=== PATIENT | female | born 1980 | race Caucasian/White ===

== ENCOUNTER 2024-01-05 12:03 | Outpatient (AMB) | payer OTHER, SELFPAY ==
[2024-01-05 12:08] VITALS: BP 142/84; PULSE 97; O2SAT 99; BMI 43.6
--- NOTE | 2024-01-05 12:08 | MHC.PC.OV ---
Vital Signs 01/05/24 12:08 Height 5 ft 3 in Weight 246 lb BMI 43.6 BP 142/84 H Blood Pressure Location Rt brachial Pulse 97 Pulse Source Pulse Oximeter Pulse Oximetry (%) 99 Oxygen Delivery Method Room Air Intake Visit Reasons: [employer]- Est care/[id number] Intake Note: Patient is here to follow up on CPAP, anxiety, and blood pressure, and weight management. Allergies No Known Allergies Allergy (Verified 01/05/24 12:12) Tobacco use date assessed: 01/05/24 Dental Screening Dental Screen Date: 01/05/24 Did you have a dental visit in the last 12 months?: Yes Did you have a dental problem in the last 6 months where you did not have access to dental care?: No Was dental information given to patient?: Patient has dentist HPI HPI Comments History of Present Illness Details This is a 43-year-old female with a past medical history of anxiety, hypertension, mild intermittent asthma, obesity and sleep apnea presenting to transfer care from my practice at [facility]. She had a complete physical exam at [facility] on 09/29/2023. She reported that her divorce was finalized. She is living in the same house with her ex in her 2 sons. It is civil. Anxiety is treated with Lexapro. She would like to stay on it for now. She was diagnosed with moderate sleep apnea. I referred her to sleep Medicine and ordered a CPAP, but when it needed to be sent to a different medical supply company [facility] would not do that. She does not drink alcohol. She sleeps on her side. I put a referral in at [facility] to see weight loss management because she wants to try a GLP 1, but they sent it to a bariatric surgeon who does not prescribed these medications. She is still interested in doing this. She continues to decline blood pressure for hypertension. She wants to try to lose weight and treat sleep apnea 1st. It has been difficult to focus on herself because she is very busy and was dealing with a divorce. She has a heart murmur on exam. This is new. Denies chest pain, shortness of breath, leg swelling or dizziness. She was treated for an asthma exacerbation this spring with a 5 day course of prednisone. She also used a nebulizer. Requests refills on albuterol supplies. ROS: Constitutional: No unexplained weight loss, fever, chills, fatigue or night sweats. Respiratory: No shortness of breath, cough or sputum production. Cardiovascular: No chest pain, chest pressure or chest discomfort. No palpitations or pedal edema. Neurologic: No headache, dizziness, syncope or weakness Endocrine: No cold or heat intolerance. No polyuria or polydipsia. Psychiatric: No depression.. No SI/HI. Physical exam: Constitutional: Alert, in no distress. Head: Normocephalic. Eyes: Pupils are equal, round and reactive to light. Extraocular muscles intact. Respiratory: Clear to auscultation. Cardiovascular: S1 S2 regular. I/ systolic murmur. Gastrointestinal: Abdomen soft, non-tender, non-distended. Normal bowel sounds. No palpable masses. Extremities: Warm and well perfused. No clubbing, cyanosis or edema. Psychiatric: Normal mood and affect [facility] Medical History (Updated 01/05/24 @ 13:46 by RADHA Gunter) Mild intermittent asthma in adult without complication Heart murmur Seasonal allergic rhinitis due to pollen Exercise-induced asthma Essential hypertension Anxiety Obesity with serious comorbidity QUINTON (obstructive sleep apnea) Sleep apnea Surgical History (Updated 01/05/24 @ 12:33 by RADHA Gunter) History of Family History (Updated 01/05/24 @ 12:26 by Myra Young [facility]) Mother Ovarian cancer Substance abuse in family Mental health disorder Maternal Grandmother Ovarian cancer Breast cancer Maternal Aunt Mental health disorder Social History Housing: House Patient Tobacco Use Status: Never used Tobacco e-Cigarette/Vaping Use: Never Used service: No Current occupational status: employed Current occupation: [employer] Cognitive needs: No Hearing needs: No Vision needs: Yes (patient wears glasses) Questionnaire PHQ-9 Over the last 2 weeks, how often have you been bothered by any of the following problems? 1. Little interest or pleasure in doing things: not at all 2. Feeling down, depressed, or hopeless: not at all 3. Trouble falling or staying asleep, or sleeping too much: not at all 4. Feeling tired or having little energy: not at all 5. Poor appetite or overeating: not at all 6. Feeling bad about yourself - or that you are a failure or have let yourself or your family down: not at all 7. Trouble concentrating on things, such as reading the newspaper or watching television: not at all 8. Moving or speaking so slowly that other people could have noticed. Or the opposite - being so fidgety or restless that you have been moving around a lot more than usual: not at all 9. Thoughts that you would be better off or of hurting yourself in some way: not at all Total score: 0 Depression Screening Interpretation: Negative Depression Screening Done: Yes Source: Developed by Drs. Hema Britton, No Noyola, Luis Borja and colleagues, with an educational jimy from [employer]. Thrive Questionnaire Date Thrive assessed: 01/05/24 I am a: Patient What is your living situation today?: I have a steady place to live Within the past 12 months, did the food you bought not last and you didn't have the money to get more?: Never true Within the past 12 months, did you worry whether your food would run out before you got money to buy more?: Never true Do you have trouble paying for medicines?: No Do you have trouble getting transportation to medical appointments?: No Do you have trouble paying your heating and electricity bill?: No Do you have trouble taking care of your child, family member or friend?: No Do you have trouble with day-to-day activities such as bathing, preparing meals, shopping, managing finances, etc.?: No Are you currently unemployed and looking for a job?: No Are you interested in more education?: No THRIVE Score: 0 NENA-7 AMB Questionnaire NENA-7 Date NENA - 7 assessed: 01/05/24 Feeling nervous, anxious, or on edge: 1 = Several days Not being able to stop or control worryin = Several days Worrying too much about different things: 1 = Several days Trouble relaxin = Not at all Being so restless that it is hard to sit still: 0 = Not at all Becoming easily annoyed or irritable: 0 = Not at all Feeling afraid as if something awful might happen: 0 = Not at all Total NENA-7 score (0-4 normal; 5-9 mild; 10-14 moderate; 15-21 severe): 3 Source: Developed by Drs. Hema LNo Salgado Kurt Kroenke and colleagues, with an educational jimy from [employer]. Physical exam (Primary Care) Vital Signs: Last Vital Signs Pulse 97 01/05/24 12:08 BP 142/84 H 01/05/24 12:08 Pulse Ox 99 01/05/24 12:08 Oxygen Delivery Method Room Air 01/05/24 12:08 BMI result Body Mass Index 43.6 Tobacco/Smoking Status: Tobacco use Status Tobacco use date assessed 01/05/24 01/05/24 12:30 Patient Tobacco Use Status Never used Tobacco 01/05/24 12:30 e-Cigarette/Vaping Use Never Used 01/05/24 12:30 PHQ-9: PHQ-9 Score PHQ-9: Total score 0 01/05/24 12:30 Depression Screening Interpretation: Negative Thrive Assessment: Date of Thrive Assessment Date Thrive assessed 01/05/24 01/05/24 12:30 Office Procedures EKG Details: EKG shows possible left atrial enlargement. Reviewed by Dr. Amaro. [id number], Complete Assessment and Plan Assessment & Plan (1) Heart murmur: Code(s): R01.1 - Cardiac murmur, unspecified (2) Obesity with serious comorbidity: Code(s): E66.9 - Obesity, unspecified Qualifiers: Obesity classification: adult class 3 (BMI >= 40) Body mass index: BMI 40.0-44.9 Obesity type: due to excess calories Qualified Code(s): E66.01 - Morbid (severe) obesity due to excess calories; Z68.41 - Body mass index [BMI] 40.0-44.9, adult (3) QUINTON (obstructive sleep apnea): Code(s): G47.33 - Obstructive sleep apnea (adult) (pediatric) (4) Anxiety: Code(s): F41.9 - Anxiety disorder, unspecified (5) Essential hypertension: Code(s): I10 - Essential (primary) hypertension (6) Mild intermittent asthma in adult without complication: Code(s): J45.20 - Mild intermittent asthma, uncomplicated Plan The patient's EKG shows no ischemic changes or arrhythmia. There is possible left atrial enlargement. Echocardiogram ordered for evaluation due to new heart murmur and history of hypertension and morbid obesity. Patient declines antihypertensive medication. She will reconsider if the echo shows evidence of hypertensive heart disease. She wants to try to lose weight. Refer to endocrinology because she wants to start a GLP 1, but [facility] will not cover it from primary care. Continue efforts at weight loss. Prior TSH normal.Recommend avoidance of caffeine and following a low-sodium diet. Continue Lexapro for anxiety which is well-controlled. Reordered CPAP. Referred to sleep Medicine for management of moderate sleep apnea. Avoid alcohol and sleeping supine. Refilled albuterol. Use reviewed. If she requires it More than once or twice per week she will contact the Office. Follow up in 4 months for hypertension. Orders: Orders AMB EKG-In Office Today R01.1 - Cardiac murmur, unspecified CA echo transthoracic complete Today R01.1 - Cardiac murmur, unspecified Referrals Sleep Medicine Referral G47.33 - Obstructive sleep apnea (adult) (pediatric) Endocrinology Referral E66.9 - Obesity, unspecified Medications: New albuterol sulfate 2.5 mg (3 mL) inhalation Q4H PRN 180 mL 0RF shortness of breath or wheezing escitalopram oxalate 20 mg PO DAILY 90 tabs 3RF albuterol sulfate 90 mcg/actuation 2 inhalations inhalation Q4H PRN 8.5 grams 0RF shortness of breath or wheezing CPAP (CPAP Machine/Device) As directed 1 ea 0RF Coding Level of Care Code Est Pt Level 4 (87335) Complex EM visit Add On G2211 Diagnoses Heart murmur R01.1 Class 3 severe obesity due to excess calories with serious comorbidity and body mass index (BMI) of 40.0 to 44.9 in adult E66.01; Z68.41 Obesity classification: adult class 3 (BMI >= 40) Body mass index: BMI 40.0-44.9 Obesity type: due to excess calories QUINTON (obstructive sleep apnea) G47.33 Anxiety F41.9 Essential hypertension I10 Mild intermittent asthma in adult without complication J45.20 CPT Codes EKG - CPT: 86210-[id number], Complete ([id number])
== END 2024-01-05 13:20 | disposition home or self-care (01) ==
PROVIDERS: PCP Physician Assistant Medical; Visit Provider Physician Assistant Medical
DX: R01.1 Cardiac murmur, unspecified (principal); E66.01 Morbid (severe) obesity due to excess calories; Z68.41 Body mass index [BMI] 40.0-44.9, adult; G47.33 Obstructive sleep apnea (adult) (pediatric); F41.9 Anxiety disorder, unspecified; I10 Essential (primary) hypertension; J45.20 Mild intermittent asthma, uncomplicated
CPT/HCPCS: 93000; 99214

== ENCOUNTER → 2024-01-12 08:59 | Outpatient (REF) | payer OTHER, SELFPAY ==
--- NOTE | 2024-01-12 09:05 | CA_ITS ---
Transthoracic Echocardiogram Patient (Last, First, Middle): Annemarie Wood, Gender: Female Date of : 1980 Age: 43 Procedure Date: 01/12/2024 Procedure Type: Transthoracic Echocardiogram Location: OP Height: 160.02 cm Weight: 108.86 kg BSA: 2.09 m2 Heart Rate: bpm BP: 140 / 84 mmHg [employer] Docent: BIRGIT Referring MD: Lisa GARCIA Symptoms: R01.1 - Cardiac murmur, unspecified Study Quality: Adequate ECG Rhythm: Sinus Conclusions: - The left ventricular systolic function is normal. The visually estimated ejection fraction is between 55-60%. - No obvious valvular pathology seen on this study. Findings Left Ventricle Normal left ventricular cavity size. There is normal left ventricular wall thickness. The left ventricular systolic function is normal. The visually estimated ejection fraction is between 55-60%. There is no evidence of regional wall motion abnormalities. Diastolic function is normal for age. Right Ventricle Normal right ventricular cavity size and systolic function. Atria Both atria are normal in size. Aortic Valve There is a normal trileaflet aortic valve. There is no aortic valve stenosis. There is no aortic valve regurgitation. Mitral Valve The mitral valve appears normal. There is no mitral valve regurgitation. There is no mitral valve stenosis. Pulmonic Valve The pulmonic valve is likely normal. Tricuspid Valve There is trace tricuspid valve regurgitation. There is no evidence of pulmonary hypertension. Great Vessels The asc aorta and aortic arch are normal in size. Venous The inferior vena cava is normal in size and collapses greater than 50% with inspiration. Pericardium/Pleural There is no evidence of pericardial effusion. Prior Study Comparison No prior study available for comparison. Recommendations, Care & Conclusions No obvious valvular pathology seen on this study. Measurements 2D Linear Measurements IVSd: 0.84 0.6-0.9/0.6-1.0 cm LVIDd: 4.74 3.9-5.3/4.2-5.9 cm LVIDd Index: 2.27 2.4-3.2/2.2-3.1 cm/m2 LVIDs: 3.15 2.0-3.6 cm LVPWd: 0.83 0.7-1.1 cm LA Diam: 3.50 2.7-3.8/3.0-4.0 cm LAIDs Index: 1.67 1.5-2.3 cm/m2 LV Mass: 162.77 67-162/88-224 g LV Mass Index: 77.88 43-95/49-115 g/m2 LVOT Diam: 2.00 3.0+(-)1.3 cm 2D Systolic Function EF 4C: 57.60 >55% EF 2C: 62.80 >55% EF BiP: 61.70 >55% Mitral Valve MV Pk E: 0.88 MV PK A: 0.94 MV Decel Time: 190.00 E/A: 0.90 E'Lateral: 11.70 E'Medial: 8.81 E/E' Med: 10.00 E/E' Lat: 7.50 PHT: 56.00 MVA PHT: 3.93 Decel [place]: 4.62 Aortic Valve AoV Pk Carlton: 1.67 AoV Mn Carl[place]: 1.13 AoV VTI: 0.35 AoV Pk Grad: 11.00 Aov Mn Grad: 6.00 LILLY Cont.VTI: 2.22 LVOT LVOT Pk [place]: 1.06 LVOT Mn [place]: 0.79 LVOT VTI: 0.25 LVOT Pk Grad: 4.00 LVOT Mn Grad: 3.00 LVOT Diam: 2.00 LVOT Area: 3.14 Diastolic Function MV Pk E: 0.88 MV Pk A: 0.94 E/A: 0.90 E'Medial: 8.81 E/E' Med: 10.00 E' Laterial: 11.70 E/E' Lat: 7.50 Right Ventricle TAPSE (mm): 26.40 TVS' Carl[place]: 14.80 Tricuspid Valve TR Pk [place]: 2.28 TR Pk Grad: 21.00 RA Press: 3.00 RVSP: 24.00 Great Vessels Aorta Sinus of Valsalva: 2.80 2.0-3.[address] [place]: 2.73 1.7-3.4 cm Ao Asc: 3.40 2.1-3.4 cm Ao Arch: 3.10 Updated in Other Vendor System with Status of Final Wilmer Concepcion MD electronically signed on 01/12/2024 10:47:06 AM with status of Final
== END ==
LOC: HO.CARD 08:59
PROVIDERS: PCP Physician Assistant Medical; Visit Provider Physician Assistant Medical
DX: R01.1 Cardiac murmur, unspecified (principal)
CPT/HCPCS: 93306

== ENCOUNTER → 2024-01-12 09:05 | Outpatient (BNV) | payer OTHER, SELFPAY | PROVIDERS: PCP Physician Assistant Medical; Visit Provider Internal Medicine | DX: R01.1 Cardiac murmur, unspecified (principal) | CPT/HCPCS: 93306 ==

== ENCOUNTER 2024-06-07 14:51 | Outpatient (AMB) | payer OTHER, SELFPAY ==
--- NOTE | 2024-06-07 14:53 | MHC.PC.OV ---
Vital Signs 06/07/24 14:56 Height 5 ft 3 in BMI Reason not done Patient refused/unable BP 146/80 H Blood Pressure Location Lt brachial Position Sitting Respiration 14 Pulse 76 Pulse Source Pulse Oximeter Pulse Oximetry (%) 99 Oxygen Delivery Method Room Air Intake Visit Reasons: F/U appointment rescheduled Intake Note: follow up Green Pipefitter Required: No Allergies No Known Allergies Allergy (Verified 06/07/24 14:54) Tobacco use date assessed: 01/05/24 Dental Screening Dental Screen Date: 06/07/24 Did you have a dental visit in the last 12 months?: Yes Did you have a dental problem in the last 6 months where you did not have access to dental care?: No Was dental information given to patient?: Patient has dentist HPI HPI Comments History of Present Illness Details This is a 44-year-old female with a past medical history of anxiety, hypertension, mild intermittent asthma, obesity and sleep apnea presenting for follow up. Patient is headed to [place] for the with her 2 children. She will visit a maternal figure there she's known for years. She had a complete physical exam at [facility] on 09/29/2023. Her divorce was finalized. She is living in the same house with her ex in her 2 sons. It is civil. Anxiety is treated with Lexapro. She was diagnosed with moderate sleep apnea. She saw sleep Medicine, and she is using a CPAP. I put a referral in at [facility] to see weight loss management because she wants to try a GLP 1, but they sent it to a bariatric surgeon who does not prescribed these medications. [place] [facility] [place] do not precribe the medication either. Patient says her insurance told her they will cover Wegovy now. I previously tried to prescribe it for her. She is working out at the gym again. She continues to decline blood pressure for hypertension. She wants to try to lose weight and treat sleep apnea. She had a mild heart murmur on her last exam, and she completed an echocardiogram which showed no significant valve disease. She had COVID-19 since I last saw her and did not require hospitalization or prednisone for asthma. Mammogram is scheduled in September. [employer] exam was just done. Her Mother ovarian cancer age 47. Patient is BRCA negative. ROS: Constitutional: No unexplained weight loss, fever, chills, fatigue or night sweats. Respiratory: No shortness of breath, cough or sputum production. Cardiovascular: No chest pain, chest pressure or chest discomfort. No palpitations or pedal edema. Neurologic: No headache, dizziness, syncope or weakness Endocrine: No cold or heat intolerance. No polyuria or polydipsia. Psychiatric: No depression. No SI/HI. Physical exam: Constitutional: Alert, in no distress. Head: Normocephalic. Respiratory: Clear to auscultation. Cardiovascular: S1 S2 regular. I/ systolic murmur. Extremities: Warm and well perfused. No clubbing, cyanosis or edema. Psychiatric: Normal mood and affect [facility] Medical History (Updated 01/05/24 @ 13:46 by RADHA Gunter) Mild intermittent asthma in adult without complication Heart murmur Seasonal allergic rhinitis due to pollen Exercise-induced asthma Essential hypertension Anxiety Obesity with serious comorbidity QUINTON (obstructive sleep apnea) Sleep apnea Surgical History (Updated 01/05/24 @ 12:33 by RADHA Gunter) History of Family History (Updated 01/05/24 @ 12:26 by Myra Young CMA) Mother Ovarian cancer Substance abuse in family Mental health disorder Maternal Grandmother Ovarian cancer Breast cancer Maternal Aunt Mental health disorder Social History Housing: House Patient Tobacco Use Status: Never used Tobacco e-Cigarette/Vaping Use: Never Used service: No Current occupational status: employed Current occupation: [employer] Cognitive needs: No Hearing needs: No Vision needs: Yes (patient wears glasses) Questionnaire PHQ-9 Over the last 2 weeks, how often have you been bothered by any of the following problems? 1. Little interest or pleasure in doing things: not at all 2. Feeling down, depressed, or hopeless: not at all 3. Trouble falling or staying asleep, or sleeping too much: not at all 4. Feeling tired or having little energy: not at all 5. Poor appetite or overeating: not at all 6. Feeling bad about yourself - or that you are a failure or have let yourself or your family down: not at all 7. Trouble concentrating on things, such as reading the newspaper or watching television: not at all 8. Moving or speaking so slowly that other people could have noticed. Or the opposite - being so fidgety or restless that you have been moving around a lot more than usual: not at all 9. Thoughts that you would be better off or of hurting yourself in some way: not at all Total score: 0 22637 - PHQ-9 Billing: Yes Source: Developed by Drs. Hema Britton, No Noyola, Luis Borja and colleagues, with an educational jimy from [employer]. Thrive Questionnaire Date Thrive assessed: 06/07/24 I am a: Patient What is your living situation today?: I have a steady place to live Within the past 12 months, did the food you bought not last and you didn't have the money to get more?: Never true Within the past 12 months, did you worry whether your food would run out before you got money to buy more?: Never true Do you have trouble paying for medicines?: No Do you have trouble getting transportation to medical appointments?: No Do you have trouble paying your heating and electricity bill?: No Do you have trouble taking care of your child, family member or friend?: No Do you have trouble with day-to-day activities such as bathing, preparing meals, shopping, managing finances, etc.?: No Are you currently unemployed and looking for a job?: No Are you interested in more education?: No Please select the resources that you would like help with: None Currently or been in a relationship where the following occur: No concerns reported THRIVE Score: 0 AUDIT C Alcohol Use Questionnaire (AUDIT-C) 1. How often do you have a drink containing alcohol?: Monthly or less Total Score: 1 NENA-7 AMB Questionnaire NENA-7 Date NENA - 7 assessed: 06/07/24 Feeling nervous, anxious, or on edge: 0 = Not at all Not being able to stop or control worryin = Not at all Worrying too much about different things: 1 = Several days Trouble relaxin = Not at all Being so restless that it is hard to sit still: 0 = Not at all Becoming easily annoyed or irritable: 0 = Not at all Feeling afraid as if something awful might happen: 0 = Not at all Total NENA-7 score (0-4 normal; 5-9 mild; 10-14 moderate; 15-21 severe): 1 Source: Developed by Drs. Hema Britton, No Noyola, Luis Borja and colleagues, with an educational jimy from [employer]. NENA-7 Assessment Billing NENA-7 Assessment Tool: NENA-7 Assessment 23485 Physical exam (Primary Care) Vital Signs: Last Vital Signs Pulse 76 06/07/24 14:56 Resp 14 06/07/24 14:56 BP 146/80 H 06/07/24 14:56 Pulse Ox 99 06/07/24 14:56 Oxygen Delivery Method Room Air 06/07/24 14:56 Tobacco/Smoking Status: Tobacco use Status Tobacco use date assessed 01/05/24 06/07/24 14:58 Patient Tobacco Use Status Never used Tobacco 06/07/24 14:58 e-Cigarette/Vaping Use Never Used 06/07/24 14:58 PHQ-9: PHQ-9 Score PHQ-9: Total score 0 06/07/24 14:58 Thrive Assessment: Date of Thrive Assessment Date Thrive assessed 06/07/24 06/07/24 14:58 Currently or been in a relationship where the following occur: No concerns reported Coding Level of Care Code Est Pt Level 4 (49720) Complex EM visit Add On G2211 Diagnoses Mild intermittent asthma in adult without complication J45.20 Essential hypertension I10 Class 3 severe obesity due to excess calories with serious comorbidity and body mass index (BMI) of 40.0 to 44.9 in adult E66.01; Z68.41 Obesity type: due to excess calories Obesity classification: adult class 3 (BMI >= 40) Body mass index: BMI 40.0-44.9 QUINOTN (obstructive sleep apnea) G47.33 Anxiety F41.9 Additional Codes NENA-7 Assessment Billing - NENA-7 Assessment Tool: NENA-7 Assessment 16457 ([id number]) PHQ-9 - 34775 - PHQ-9 Billing: Yes ([id number]) Assessment & Plan Assessment & Plan (1) Mild intermittent asthma in adult without complication: Code(s): J45.20 - Mild intermittent asthma, uncomplicated Category: Medical (2) Essential hypertension: Code(s): I10 - Essential (primary) hypertension Category: Medical (3) Obesity with serious comorbidity: Code(s): E66.9 - Obesity, unspecified Category: Medical Qualifiers: Obesity type: due to excess calories Obesity classification: adult class 3 (BMI >= 40) Body mass index: BMI 40.0-44.9 Qualified Code(s): E66.01 - Morbid (severe) obesity due to excess calories; Z68.41 - Body mass index [BMI] 40.0-44.9, adult (4) QUINTON (obstructive sleep apnea): Code(s): G47.33 - Obstructive sleep apnea (adult) (pediatric) Category: Medical (5) Anxiety: Code(s): F41.9 - Anxiety disorder, unspecified Category: Medical Plan Patient declines antihypertensive medication. She wants to try to lose weight. Given information for the right BMI application. Prior TSH normal. Recommend avoidance of caffeine and following a low-sodium diet. I will resubmit Van to the pharmacy and message to see if anew prior authorization is needed. She denies contraindications to this type of medication. Continue Lexapro for anxiety which is well-controlled. Compliant with CPAP. Followed by sleep medicine. Avoid alcohol and sleeping supine. Continue albuterol 2 puffs every 4 hours as needed for coughing, wheezing and shortness of breath. Follow up in 10/10/2024 for physical exam. Labs ordered for this. Orders: Orders Lipid Panel Today E66.01 - Morbid (severe) obesity due to excess calories, E78.5 - Hyperlipidemia, unspecified, F41.9 - Anxiety disorder, unspecified, I10 - Essential (primary) hypertension, Z13.6 - Encounter for screening for cardiovascular disorders, Z68.41 - Body mass index [BMI] 40.0-44.9, adult TSH reflex Free T4 Today E66.01 - Morbid (severe) obesity due to excess calories, F41.9 - Anxiety disorder, unspecified, I10 - Essential (primary) hypertension, Z13.6 - Encounter for screening for cardiovascular disorders, Z68.41 - Body mass index [BMI] 40.0-44.9, adult Complete Blood Count no Diff Today E66.01 - Morbid (severe) obesity due to excess calories, F41.9 - Anxiety disorder, unspecified, I10 - Essential (primary) hypertension, Z13.6 - Encounter for screening for cardiovascular disorders, Z68.41 - Body mass index [BMI] 40.0-44.9, adult Comprehensive Met. Panel Today E66.01 - Morbid (severe) obesity due to excess calories, F41.9 - Anxiety disorder, unspecified, I10 - Essential (primary) hypertension, Z13.6 - Encounter for screening for cardiovascular disorders, Z68.41 - Body mass index [BMI] 40.0-44.9, adult UA w Microscopic Today I10 - Essential (primary) hypertension, R39.9 - Unspecified symptoms and signs involving the genitourinary system Referrals Open Access Screening Colonoscopy Referral Z12.11 - Encounter for screening for malignant neoplasm of colon, Z12.12 - Encounter for screening for malignant neoplasm of rectum Medications: Refilled semaglutide (weight loss) (Wegovy) administer weeks 1 through 4 of therapy 0.25 mg (0.5 mL) subcut QWEEK 2 mL 0RF Patient Instructions: [employer] Reminders: Watch all video tutorials, read all text messages and click on any features hidden messages to understand the magnus better. Accurately enter your weight in pounds and height in feet and inches. Accurately?select what time you wake up and sleep and be careful to select am/pm properly. Save your username and password somewhere. The magnus meets all HIPAA requirements. You must select shakes or bars or both and in the following?pages a specific brand. If you don't select a brand, the plan won't be accurate. You can use a regular?scale but buying the $23 [employer] Rpptrip.com scale from [employer] is recommended. For any issues you can hit technical support. If you take anti-diabetic and/or anti-hypertensive medications you must monitor blood sugars and blood pressure and alert the office if blood sugars are below 90 and blood pressures are below 110/60 so we can adjust medications if appropriate. The magnus will send you automatic?reminders to do that if you enter in the magnus that you have diabetes and/or hypertension and take medications for these conditions.
--- OUTSIDE RECORDS SUMMARY | 2024-06-07 14:54 | XMS_ITS | Continuity of Care Document ---
Author Organization [facility] Address [address] [place] [id number]- Care Team Providers Care Brick Catcher Name Role Phone Not on Staff, PCP Primary Care Physician Unavail able [facility]counter [facility] Date(s): 05/04/24 - 05/11/24 [facility] [address] [place] [id number] Attending Physician: Raquel VALERIO, Preeti Tejada Admitting Physician: Preeti García MD Referring Physician: Saranya Torres Encounter Type: OutPatient One Time Allergies, Adverse Reactions, Alerts Substance Criticality Severity Reaction Reaction Severity Status Dust Active Latex Active Other Environmental Allergy 1 Active 1SMOKE Immunizations Given and Recorded Vaccine Date Status Refusal Reason tetanus/diphtheria/pertussis, acel(Tdap) 09/29/23 Given tetanus/diphtheria/pertussis, acel(Tdap) 05/03/13 Recorded influenza virus vaccine, inactivated 07/06/21 Von rded influenza virus vaccine, inactivated 03/09/20 Von rded influenza virus vaccine, inactivated 04/08/19 Von rded influenza virus vaccine, inactivated 04/22/16 Von rded influenza virus vaccine, inactivated 06/21/15 Von rded influenza virus vaccine, inactivated 05/03/13 Von rded influenza virus vaccine, inactivated 04/06/10 Von rded influenza virus vaccine, inactivated 04/05/09 Von rded SARS-CoV-2 (COVID-19) mRNA BNT-162b2 vac 07/06/21 Recorded SARS-CoV-2 (COVID-19) mRNA BNT-162b2 vac 10/25/20 Recorded SARS-CoV-2 (COVID-19) mRNA BNT-162b2 vac 10/03/20 Recorded tetanus-diphtheria toxoids (Td) 06/23/02 Recorded Medications Blood Pressure Monitor See Instructions, # 1 each, Maintenance, Use as directed to monitor blood pressure., 03/18/22 12:02:00 PM EDT, XL blood pressure cuff, Supply Start Date: 03/18/22 Status: Ordered Quantity: 1.0 Unit: each Repeat number: 1 Indication: Elevated blood-pressure reading, without diagnosis of hypertension Blood Pressure Monitor See Instructions, # 1 each, Maintenance, Use as directed to monitor blood pressure., 01/01/22 11:00:00 PM EDT, Supply Start Date: 01/01/22 Status: Ordered Quantity: 1.0 Unit: each Repeat number: 1 Indication: Elevated blood-pressure reading, without diagnosis of hypertension CPAP Machine See Instructions, # 1 each, Maintenance, AutoCPAP 8-20 cm H20, use Daily when sleeping, 11/10/23 11:11:00 AM EDT, Supply Start Date: 11/10/23 Status: Ordered Quantity: 1.0 Unit: each Repeat number: 1 Indication: Obstructive sleep apnea (adult) (pediatric) Diflucan 150 mg oral tablet See Instructions, 1 tablet By Mouth Once. Repeat the dose in 3 days if symptoms persist., # 2 tablet, 0 Refills, Maintenance, 10/18/22 4:27:00 PM EDT, Tablet, [facility] #[id number], Partial fill upon patient request if the prescription is for a schedule II opioid drug., 159.5, cm, 10/18/22 16:12:00 EDT, Height Start Date: 10/18/22 Status: Ordered Quantity: 2.0 Unit: tablet Repeat number: 1 escitalopram 20 mg oral tablet 1 tablet, By Mouth, Daily, # 90 tablet, 0 Refills, Maintenance, 12/16/23 6:31:00 AM EDT, [facility] #[id number], 159.5, cm, 11/03/23 10:22:00 EDT, Height, 110, kg, 11/03/23 10:22:00 EDT, Dry Weight Start Date: 12/16/23 Status: Ordered Quantity: 90.0 Unit: tablet Repeat number: 1 ProAir HFA 90 mcg/inh inhalation aerosol 1 puffs, Inhalation, 4 times a day, PRN as needed for wheezing, # 18 Gm, 0 Refills, Maintenance, 01/01/22 11:19:00 AM EDT, Aerosol, Partial fill upon patient request if the prescription is for a schedule II opioid drug. Start Date: 01/01/22 Status: Ordered Quantity: 18.0 Unit: g Repeat number: 1 Problem List Condition Confirmation Course Effective Dates Status Health St atus Informant Anxiety Confirmed Active Exercise-induced asthma Confirmed Active Hypertension Confirmed Active Recurrent loss without current Confirmed Active Seasonal allergic rhinitis Confirmed Active Severe obesity Confirmed Active Observed sleep apnea Confirmed Active Snoring Confirmed Active Social History Social History Type Response Smoking Status Never (less than 100 in lifetime) entered on: 01/01/22 Sex Sex Representation Female (finding) Patient Care team information Care Team Personnel Name: Not on Staff, PCP Position: S Physician (General Medicine) Member Role: PCP Care Team Related Persons Name: YUMI PEREZ Insurance Providers Guarantor name: RAUL PEREZ [facility] Information #: 1 Payer: [facility] [employer] Member Number: [id number] Policy Number: NA Group Number: [id number] Health Plan Information #: 2 Payer: [facility] [employer] Member Number: [id number] Policy Number: NA Group Number: NA
--- OUTSIDE RECORDS SUMMARY | 2024-06-07 14:54 | XMS_ITS | Continuity of Care Document ---
Author Organization [facility] Address [address] [place] [id number]- Care Team Providers Care Upholsterer Outside Name Role Phone Not on Staff, PCP Primary Care Physician Unavail able [facility]counter [facility] Date(s): 05/04/24 - 06/03/[address] [address]- Attending Physician: Marbin Canchola Admitting Physician: Marbin Canchola Referring Physician: AdmtrMarbin Encounter Type: Triage Allergies, Adverse Reactions, Alerts Substance Criticality Severity [...] Refills, Maintenance, 10/18/22 4:27:00 PM EDT, Tablet, [facility] #[id number], Partial fill upon patient request if the prescription is for a schedule II opioid drug., 159.5, cm, 10/18/22 16:12:00 EDT, Height Start Date: 10/18/22 Status: Ordered Quantity: 2.0 Unit: tablet Repeat number: 1 escitalopram 20 mg oral tablet 1 tablet, By Mouth, Daily, # 90 tablet, 0 Refills, Maintenance, 12/16/23 6:31:00 AM EDT, [facility] #[id number], 159.5, cm, 11/03/23 10:22:00 EDT, Height, 110, [...] PEREZ Insurance Providers Guarantor name: RAUL PEREZ [facility] Plan Information #: 1 Payer: [employer] H[employer] Member Number: NA Policy Number: NA Group Number: NA
[2024-06-07 14:56] VITALS: BP 146/80; PULSE 76; RESP 14; O2SAT 99
== END 2024-06-07 15:29 | disposition home or self-care (01) ==
PROVIDERS: PCP Physician Assistant Medical; Visit Provider Physician Assistant Medical
DX: J45.20 Mild intermittent asthma, uncomplicated (principal); I10 Essential (primary) hypertension; E66.01 Morbid (severe) obesity due to excess calories; Z68.41 Body mass index [BMI] 40.0-44.9, adult; G47.33 Obstructive sleep apnea (adult) (pediatric); F41.9 Anxiety disorder, unspecified

== ENCOUNTER 2024-07-27 13:29 | Outpatient (AMB) | payer OTHER, SELFPAY ==
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
== END 2024-07-27 14:57 | disposition home or self-care (01) ==
PROVIDERS: PCP Physician Assistant Medical; Visit Provider Physician Assistant Medical
DX: G47.33 Obstructive sleep apnea (adult) (pediatric) (principal); F41.9 Anxiety disorder, unspecified; R53.83 Other fatigue; G47.9 Sleep disorder, unspecified; J45.20 Mild intermittent asthma, uncomplicated
CPT/HCPCS: 99204

== ENCOUNTER 2024-07-27 13:29 | Outpatient (REF) | payer OTHER, SELFPAY ==
--- OUTSIDE RECORDS SUMMARY | 2024-07-27 15:03 | XMS_ITS | Clinical Summary ---
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 MOUTH SMPL SECTION 11/11/2014 PROCEDURE: [...] Alive Father Alive Maternal Grandfather (Age 49) [place] Maternal Grandmother 50 (Age 74) pu lmonary [...] Term M CS-Uns pec Livin g Delivery Location:[facility] 015 Term M CS-Uns pec Livin g Delivery Location:[facility] Last Filed Vital Signs Vital Sign Reading [...] Upcoming Encounters Date Type Department Care Team ([facility] st Contact Info) Description 10/19/2024 11:20 AM EDT Appointment Radiology Department [address] [address] Health Maintenance Due Date Last Done Comments [...] vaginalis Negative Negative 05/11/2024 6:[address] [facility] Swab Vaginal structure / Unknown Non-blood Collection / Unknown 05/11/2024 3:38 PM EST 05/11/2024 3:39 PM EST Lauren JOHNSON LAB MICROBIOLOGY - GENERAL ORDERABLES [facility] [address] [place] [address], * Chlamydia trachomatis and Neisseria gonorrhoeae molecular study (05/11/2024 3:38 PM EST) Neisseria gonorrhoeae PCR Negative Negative LAB MOLECULAR DIAGNOSTICS METHOD 05/12/2024 9:[address] [facility] Chlamydia trachomatis PCR Negative Negative LAB MOLECULAR DIAGNOSTICS METHOD 05/12/2024 9:[address] [facility] Swab Cervix uteri structure / Unknown Non-blood Collection / Unknown 05/11/2024 3:38 PM EST 05/11/2024 3:39 PM EST Lauren Orozco CNM LAB MICROBIOLOGY - GENERAL ORDERABLES [facility] [address] [place] [address], * SCREENING MAMMOGRAPHY BI 2-VIEW BREAST INC [...] PROCEDURES * Cervical Cancer Screening: HPV (11/15/2021) [facility] Cervical Cancer Screening: HPV negative abstracted Historical Provider MD FLORENCE MOONEY E * Annual BMP Blood Test (06/06/2021) [facility] Annual BMP Blood Test abstracted Historical Provider MD FLORENCE MOONEY E * (ABNORMAL) Lipid panel (03/09/2020) [facility] LDL/HDL Ratio 4 0 - 4 Triglycerides 126 0 - 150 mg/dL Cholesterol 183 100 - 200 mg/dL HDL 44 40 mg/dL LDL Cholesterol 114(A) 0 - 100 mg/dL Blood Venous blood specimen / Unknown Historical Provider LAB BLOOD ORDERAB LES * HIV Screening (05/04/2009) [facility] HIV Screening abstracted Historical Provider MD FLORENCE Mcguire from Last 3 Months or Most Recently Relevant to Health Maintenance Care Teams Iron 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
[2024-07-27 18:07] LABS: Hematocrit 39.6 % (37.0-47.0); Hemoglobin 12.9 g/dl (12.0-16.0); Mean Corpuscular HGB Conc 32.6 g/dl (31.0-35.0); Mean Corpuscular Hemoglobin 27.3 pg (27.0-33.0); Mean Corpuscular Volume 83.9 fL (80.0-98.0); Mean Platelet Volume 10.6 fL (9.4-12.3); Platelet Count 200 X10*3/uL (160-400); Red Blood Count 4.72 X10*6/uL (4.20-5.50); Red Cell Distribution Width 13.4 % (11.0-16.0); White Blood Count 5.2 X10*3/uL (4.8-10.8)
[2024-07-27 18:19] LABS: Estimated Average Glucose 108 mg/dL; Hemoglobin A1C 121.9646 umol/L; Hemoglobin A1c % 5.4 % (<6.0); Total Hemoglobin (HGBA1C) 3476.2789 umol/L
[2024-07-27 18:34] LABS: Alanine Aminotransferase 63 U/L (0-31); Albumin Level 3.9 g/dL (3.5-5.0); Alkaline Phosphatase 103 U/L (39-117); Anion Gap 17 (12-20); Aspartate Amino Transferase 49 U/L (5-31); Bilirubin Total 0.3 mg/dL (0.0-1.0); Blood Urea Nitrogen 11 mg/dL (9-16); Calcium 8.8 mg/dL (8.4-10.2); Carbon Dioxide 26 mmol/L (22-29); Chloride 104 mmol/L (96-108); Estimated Glomerular Filt Rate > 60; Glucose Random 91 mg/dL (60-115); Potassium 4.7 mmol/L (3.3-5.1); Sodium 142 mmol/L (135-145); Total Protein 7.9 g/dL (6.5-8.0)
[2024-07-27 18:41] LABS: TSH reflex Free T4 1.45 uIU/mL (0.32-4.0); Vitamin D 25-OH Total 67.6 ng/mL (>30)
[2024-07-31 08:34] LABS: Methylmalonic Acid 100 nmol/L (55-335)
== END 2024-07-27 13:30 | disposition home or self-care (01) ==
LOC: HO.HKASLDS 13:29
PROVIDERS: PCP Physician Assistant Medical; Visit Provider Physician Assistant Medical
DX: G47.9 Sleep disorder, unspecified (principal); R53.83 Other fatigue; Z13.1 Encounter for screening for diabetes mellitus
CPT/HCPCS: 36415; 80053; 82306; 83036; 83921; 84443; 85027

== ENCOUNTER 2024-07-27 16:15 | Outpatient (REF) | payer OTHER, SELFPAY ==
[2024-07-27 17:29] LABS: Bacteria Urine 1+ (None Seen); Hyaline Casts Urine 0-2 /LPF (0-2); RBC Urine >20 /HPF (0-2); WBC Urine 21-50 /HPF (0-5)
[2024-07-27 17:42] LABS: Appearance Urine Cloudy; Color Urine Orange; Glucose Urine UA Negative (Negative); Leukocyte Esterase Urine Moderate (2+) (Negative); Nitrite Urine Negative (Negative); PH 5.5 (5.0-9.0); UMIC TRIGGER UA YES; Urine Blood Large (3+) (Negative); Urine Ketones Negative (Negative); Urine Protein 30 (1+) mg/dL (Neg-Trace)
[2024-07-29 20:54] LABS: Homocysteine 8.3 umol/L (<10.4)
== END 2024-07-27 16:16 | disposition home or self-care (01) ==
LOC: HO.LAB 16:15
PROVIDERS: PCP Physician Assistant Medical; Visit Provider Physician Assistant Medical
DX: G47.9 Sleep disorder, unspecified (principal); R53.83 Other fatigue; I10 Essential (primary) hypertension; R39.9 Unspecified symptoms and signs involving the genitourinary system
CPT/HCPCS: 36415; 81001; 83090

== ENCOUNTER 2024-09-07 11:57 | Outpatient (REF) | payer OTHER, SELFPAY ==
[2024-09-07 14:25] LABS: Hematocrit 39.7 % (37.0-47.0); Hemoglobin 13.4 g/dl (12.0-16.0); Mean Corpuscular HGB Conc 33.8 g/dl (31.0-35.0); Mean Corpuscular Hemoglobin 28.2 pg (27.0-33.0); Mean Corpuscular Volume 83.6 fL (80.0-98.0); Mean Platelet Volume 10.6 fL (9.4-12.3); Platelet Count 236 X10*3/uL (160-400); Red Blood Count 4.75 X10*6/uL (4.20-5.50); Red Cell Distribution Width 13.8 % (11.0-16.0); White Blood Count 6.3 X10*3/uL (4.8-10.8)
[2024-09-07 14:50] LABS: Alanine Aminotransferase 22 U/L (0-31); Albumin Level 4.1 g/dL (3.5-5.0); Alkaline Phosphatase 94 U/L (39-117); Anion Gap 11 (12-20); Aspartate Amino Transferase 22 U/L (5-31); Bilirubin Direct 0.1 mg/dL (0.0-0.5); Bilirubin Total 0.3 mg/dL (0.0-1.0); Blood Urea Nitrogen 12 mg/dL (9-16); Calcium 9.2 mg/dL (8.4-10.2); Carbon Dioxide 27 mmol/L (22-29); Chloride 106 mmol/L (96-108); Cholesterol 182 mg/dL (<200); Estimated Glomerular Filt Rate > 60; Glucose Random 104 mg/dL (60-115); HDL Cholesterol 47 mg/dL (>40); LDL Cholesterol Calculated 115 mg/dL (<100); Potassium 4.1 mmol/L (3.3-5.1); Sodium 140 mmol/L (135-145); Triglycerides 100 mg/dL (<150)
[2024-09-07 15:19] LABS: Appearance Urine Clear; Color Urine Yellow; Glucose Urine UA Negative (Negative); Leukocyte Esterase Urine Negative (Negative); Nitrite Urine Negative (Negative); Specific Gravity - Urine <= 1.005 (1.005-1.025); Urine Blood Negative (Negative); Urine Ketones Negative (Negative); Urine Protein Negative (Neg-Trace)
[2024-09-07 15:25] LABS: Bacteria Urine None Seen (None Seen); Hyaline Casts Urine 0-2 /LPF (0-2); RBC Urine 0-2 /HPF (0-2); Squamous Epithelial Cell Urine 0-2 /HPF (0-2); WBC Urine 0-5 /HPF (0-5)
== END 2024-09-07 11:58 | disposition home or self-care (01) ==
LOC: HO.WFDLDS 11:57
PROVIDERS: Visit Provider Physician Assistant Medical
DX: E78.5 Hyperlipidemia, unspecified (principal); I10 Essential (primary) hypertension; E66.01 Morbid (severe) obesity due to excess calories; Z68.41 Body mass index [BMI] 40.0-44.9, adult; F41.9 Anxiety disorder, unspecified; Z13.6 Encounter for screening for cardiovascular disorders; R39.9 Unspecified symptoms and signs involving the genitourinary system; R79.89 Other specified abnormal findings of blood chemistry
CPT/HCPCS: 36415; 80053; 80061; 81001; 82248; 84443; 85027; 87086

== ENCOUNTER 2024-10-18 15:58 | Outpatient (AMB) | payer OTHER, SELFPAY ==
--- NOTE | 2024-10-18 16:09 | A.OFFPC_ITS ---
Vital Signs 10/18/24 16:15 Height 5 ft 3 in Weight 262 lb 2 oz BMI 46.4 BP 132/94 H Blood Pressure Location Lt brachial Position Sitting Respiration 14 Pulse 98 Pulse Source Pulse Oximeter Temp 98.4 F Temp Source Temporal Artery Scan Pulse Oximetry (%) 99 Oxygen Delivery Method Room Air Intake Visit Reasons: annual physical exam Intake Note: Annemarie presents in the office today for her annual physical. Allergies Seasonal Allergies Allergy (Verified 10/18/24 16:12) Runny eyes, runny nose, congestion Tobacco use date assessed: 10/18/24 Dental Screening Dental Screen Date: 10/18/24 Did you have a dental visit in the last 12 months?: Yes Did you have a dental problem in the last 6 months where you did not have access to dental care?: No Was dental information given to patient?: Patient has dentist HPI HPI Comments History of Present Illness Details This is a 44-year-old female with a past medical history of anxiety, hypertension, mild intermittent asthma, obesity and sleep apnea presenting for follow up. She is living in the same house with her ex in her 2 sons. This is due to financial reasons. It is civil. Anxiety is treated with Lexapro. She still feels well on this dosage, and she wants to remain on it. She was diagnosed with moderate sleep apnea. She saw sleep Medicine, and she is using a CPAP. This has been helpful. Her insurance denied GLP 1 medication on the basis that she has not tried program. She really wants to try this medication so she is thinking about getting it from a med spot or online provider. She exercises regularly. She went on a 22 mi bike ride today. She has hypertension. She does not have any known complications of this. She is willing to try medication now. She had a mild heart murmur on her last exam, and she completed an echocardiogram which showed no significant valve disease. She has a history of asthma. I recommend she received the pneumonia vaccine, and she can get this at the pharmacy. Colonoscopy is scheduled in December. Mammogram is scheduled tomorrow. 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 Her Mother ovarian cancer age 47. Patient is BRCA negative. ROS: Constitutional: No unexplained weight loss, fever, chills, fatigue or night sweats. Eyes: No vision changes, blurry vision, double vision, eye pain, eye redness, eye discharge. ENT: No hearing loss, sneezing, congestion, runny nose or sore throat. Respiratory: No shortness of breath, cough or sputum production. Cardiovascular: No chest pain, chest pressure or chest discomfort. No palpitations or pedal edema. Gastrointestinal: No anorexia, nausea, vomiting or diarrhea. No abdominal pain or blood in stool. Genitourinary: No dysuria, hematuria, urinary frequency. Neurologic: No dizziness, syncope, unilateral weakness, ataxia, numbness or tingling in the extremities. Patient has migraines it is followed by Neurology. Musculoskeletal: No muscle pain, back pain, joint pain or swelling. Hematologic/Lymphatics: No bleeding or bruising. No painful lymph nodes. Skin: No rash or itching. No changing moles or freckles. Endocrine: No cold or heat intolerance. No polyuria or polydipsia. Psychiatric: No depression or anxiety symptoms. No SI/HI. Physical exam: Constitutional: Alert, in no distress. Head: Normocephalic. Eyes: Pupils are equal, round and reactive to light. Extraocular muscles intact. Ear, Nose and Throat: Canals clear. TMs normal. Normal nasal mucosa. No nasal discharge. No oral lesions. Neck: Supple, Full range of motion. No lymphadenopathy. No palpable thyroid masses. Respiratory: Clear to auscultation. Cardiovascular: S1 S2 regular. 1/6 systolic murmur. Gastrointestinal: Abdomen soft, non-tender, non-distended. Normal bowel sounds. No palpable masses. Neurologic: No focal neurological deficits. Symmetric patellar reflexes. Moves all extremities spontaneously. Sensation intact bilaterally. Skin: No rashes or lesions. Musculoskeletal: No gross deformities. Normal range of motion. Extremities: Warm and well perfused. No clubbing, cyanosis or edema. 3+ peripheral pulses bilaterally. Psychiatric: Normal mood and affect [facility] Medical History (Updated 10/18/24 @ 17:05 by RADHA Gunter) Routine physical examination Elevated LFTs Mild intermittent asthma in adult without complication Heart murmur Seasonal allergic rhinitis due to pollen Exercise-induced asthma Essential hypertension Anxiety Obesity with serious comorbidity QUINTON (obstructive sleep apnea) Sleep apnea Surgical History History of Family History Mother Ovarian cancer Substance abuse in family Mental health disorder Maternal Grandmother Ovarian cancer Breast cancer Maternal Aunt Mental health disorder Social History (Updated 10/18/24 @ 16:13 by Brenda Castillo MA) Housing: House Alcohol intake: current Patient Tobacco Use Status: Never used Tobacco e-Cigarette/Vaping Use: Never Used service: No Current occupational status: employed Current occupation: [employer] Current occupational exposures/hazards: No Cognitive needs: No Hearing needs: No Vision needs: Yes (patient wears glasses) Questionnaire PHQ-9 Over the last 2 weeks, how often have you been bothered by any of the following problems? 1. Little interest or pleasure in doing things: not at all 2. Feeling down, depressed, or hopeless: not at all 3. Trouble falling or staying asleep, or sleeping too much: not at all 4. Feeling tired or having little energy: not at all 5. Poor appetite or overeating: not at all 6. Feeling bad about yourself - or that you are a failure or have let yourself or your family down: not at all 7. Trouble concentrating on things, such as reading the newspaper or watching television: not at all 8. Moving or speaking so slowly that other people could have noticed. Or the opposite - being so fidgety or restless that you have been moving around a lot more than usual: not at all 9. Thoughts that you would be better off or of hurting yourself in some way: not at all Total score: 0 Depression Screening Interpretation: Negative Depression Screening Done: Yes 69228 - PHQ-9 Billing: Patient declined-do not bill Source: Developed by Drs. Hema Britton, No Noyola, Luis Borja and colleagues, with an educational jimy from [employer]. Thrive Questionnaire Date Thrive assessed: 10/18/24 I am a: Patient What is your living situation today?: I have a steady place to live Within the past 12 months, did the food you bought not last and you didn't have the money to get more?: I choose not to answer this question Within the past 12 months, did you worry whether your food would run out before you got money to buy more?: I choose not to answer this question Do you have trouble paying for medicines?: No Do you have trouble getting transportation to medical appointments?: No Do you have trouble paying your heating and electricity bill?: No Do you have trouble taking care of your child, family member or friend?: No Do you have trouble with day-to-day activities such as bathing, preparing meals, shopping, managing finances, etc.?: No Are you currently unemployed and looking for a job?: No Are you interested in more education?: No Please select the resources that you would like help with: None Currently or been in a relationship where the following occur: No concerns reported THRIVE Score: 0 AUDIT C Alcohol Use Questionnaire (AUDIT-C) 1. How often do you have a drink containing alcohol?: Never 3. How often do you have six or more drinks on one occasion?: Never Total Score: 0 NENA-7 AMB Questionnaire NENA-7 Date NENA - 7 assessed: 10/18/24 Feeling nervous, anxious, or on edge: 0 = Not at all Not being able to stop or control worryin = Not at all Worrying too much about different things: 0 = Not at all Trouble relaxin = Not at all Being so restless that it is hard to sit still: 0 = Not at all Becoming easily annoyed or irritable: 0 = Not at all Feeling afraid as if something awful might happen: 0 = Not at all Total NENA-7 score (0-4 normal; 5-9 mild; 10-14 moderate; 15-21 severe): 0 Source: Developed by Drs. Hema Britton, No Noyola, Luis Borja and colleagues, with an educational jimy from [employer]. NENA-7 Assessment Billing NENA-7 Assessment Tool: NENA-7 Assessment 76330 ACT Questionnaire In the past 4 weeks, how much of the time did your asthma keep you from getting as much done at work, school or at home?: None of the time During the past 4 weeks, how often have you had shortness of breath?: Not at all During the past 4 weeks, how often did your asthma symptoms wake you up at night or earlier than usual in the morning?: Not at all During the past 4 weeks, how often have you had to use your rescue inhaler or nebulizer medication?: Not at all How would you rate your asthma control during the past 4 weeks?: Well controlled ACT Interpretation: Positive Score: 24 Physical exam (Primary Care) Vital Signs: Last Vital Signs Temp 98.4 F 10/18/24 16:15 Pulse 98 10/18/24 16:15 Resp 14 10/18/24 16:15 BP 132/94 H 10/18/24 16:15 Pulse Ox 99 10/18/24 16:15 Oxygen Delivery Method Room Air 10/18/24 16:15 BMI result Body Mass Index 46.4 Tobacco/Smoking Status: Tobacco use Status Tobacco use date assessed 10/18/24 10/18/24 16:20 Patient Tobacco Use Status Never used Tobacco 10/18/24 16:13 e-Cigarette/Vaping Use Never Used 10/18/24 16:13 PHQ-9: PHQ-9 Score PHQ-9: Total score 0 10/18/24 16:20 Depression Screening Interpretation: Negative Thrive Assessment: Date of Thrive Assessment Date Thrive assessed 10/18/24 10/18/24 16:20 Currently or been in a relationship where the following occur: No concerns reported Coding Level of Care Code Est Pt Prev Care 40-64y(47197) Diagnoses Class 3 severe obesity due to excess calories with serious comorbidity and body mass index (BMI) of 40.0 to 44.9 in adult E66.01; Z68.41 Obesity type: due to excess calories Obesity classification: adult class 3 (BMI >= 40) Body mass index: BMI 40.0-44.9 QUINTON (obstructive sleep apnea) G47.33 Essential hypertension I10 Anxiety F41.9 Routine physical examination Z00.00 Additional Codes Asthma Control Questionnaire - ACT Interpretation: Positive ([id number]) NENA-7 Assessment Billing - NENA-7 Assessment Tool: NENA-7 Assessment [id number] ([id number]) Assessment & Plan Assessment & Plan (1) Obesity with serious comorbidity: Code(s): E66.9 - Obesity, unspecified Category: Medical Qualifiers: Obesity type: due to excess calories Obesity classification: adult class 3 (BMI >= 40) Body mass index: BMI 40.0-44.9 Qualified Code(s): E66.01 - Morbid (severe) obesity due to excess calories; Z68.41 - Body mass index [BMI] 40.0-44.9, adult Plan: Recommended lifestyle modifications. She is not interested in bariatric surgery. We will review the denial again from the insurance to see if there is a basis for appeal for GLP 1. Patient is not a candidate for alternative like phentermine due to history of hypertension. (2) QUINTON (obstructive sleep apnea): Code(s): G47.33 - Obstructive sleep apnea (adult) (pediatric) Category: Medical Plan: Continue treatment with CPAP and efforts at weight loss. (3) Essential hypertension: Code(s): I10 - Essential (primary) hypertension Category: Medical Plan: Recommended low-sodium diet and avoidance of caffeine. Continue efforts at weight loss. We discussed different types of blood pressure medication and their side effects. She will try losartan 25 mg daily. Reviewed side effects including hyperkalemia, angioedema, hypotension, decreased renal function. We also reviewed benefits of treating high blood pressure. Patient will return to the lab in 2 weeks to check renal function and electrolytes. She will contact the office if she has any difficulty with the medicine. (4) Anxiety: Code(s): F41.9 - Anxiety disorder, unspecified Category: Medical Plan: Stable. Continue Lexapro. (5) Routine physical examination: Code(s): Z00.00 - Encounter for general adult medical examination without abnormal findings Category: Medical Plan: Patient is seen today for a routine physical. As part of this visit we reviewed the following issues, which are considered and essential part of preventative health in this age group: - Breast Cancer screening - Annual Material Liaison exam - Screening for colon cancer - Cholesterol screening - Osteoporosis prevention including calcium/vitamin D intake, weight bearing exercise & smoking cessation - Nutritional and exercise counseling - Screening for depression - Education about skin cancer - Recommendations about immunizations - Recommendation of an eye exam - Screening for substance abuse Plan Follow up in 4 weeks for a blood pressure check. Orders: Orders Basic Metabolic Panel Today I10 - Essential (primary) hypertension Medications: New losartan 25 mg PO DAILY 90 tabs 0RF
[2024-10-18 16:15] VITALS: BP 132/94; PULSE 98; RESP 14; TEMP 36.9; O2SAT 99; BMI 46.4
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
--- OUTSIDE RECORDS SUMMARY | 2024-10-18 18:42 | XMS_ITS | Continuity of Care Document ---
Author Organization [employer] [facility] Address [address] [facility] [address] [place] [address] Insurance Providers Payer Plan Claims Address Claims Phone Policy Number Group Number Relation Employer Guarantor Name Guarantor Guarantor Address Guarantor Phone JAILYN Cohen TERRANCE KEITH [place] [address] [facility] [address], [place] [address] [id number] Spouse Unknown Unknown [address] [place] [address] Problems Condition ICD9 code ICD10 code SNOMED code Start Date End Date S tatus Encounter for screening for other metabolic disorders Z13.228 Results No Results Allergies, adverse reactions, alerts No known allergies and adverse reactions Medications No administered medications reported Vital Signs No vital signs reported Social History No smoking Hx information available
== END 2024-10-18 17:00 | disposition home or self-care (01) ==
LOC: HO.HMCFM 15:59
PROVIDERS: PCP Physician Assistant Medical; Visit Provider Physician Assistant Medical
DX: E66.01 Morbid (severe) obesity due to excess calories (principal); Z68.41 Body mass index [BMI] 40.0-44.9, adult; G47.33 Obstructive sleep apnea (adult) (pediatric); I10 Essential (primary) hypertension; F41.9 Anxiety disorder, unspecified; Z00.00 Encounter for general adult medical examination without abnormal findings

== ENCOUNTER → 2024-10-18 15:58 | Outpatient (BNVA) | payer OTHER, SELFPAY | PROVIDERS: PCP Physician Assistant Medical; Visit Provider Physician Assistant Medical | DX: Z00.00 Encounter for general adult medical examination without abnormal findings (principal); E66.01 Morbid (severe) obesity due to excess calories; Z68.41 Body mass index [BMI] 40.0-44.9, adult; G47.33 Obstructive sleep apnea (adult) (pediatric); I10 Essential (primary) hypertension; F41.9 Anxiety disorder, unspecified | CPT/HCPCS: 96127; 96160 ==

== ENCOUNTER 2024-11-22 11:42 | Outpatient (AMB) | payer OTHER, SELFPAY ==
--- NOTE | 2024-11-22 11:49 | A.OFFPC_ITS ---
Vital Signs 11/22/24 11:52 Height 5 ft 3 in Weight 266 lb 6 oz BMI 47.2 BP 134/88 Blood Pressure Location Lt brachial Respiration 16 Pulse 73 Pulse Source Pulse Oximeter Pulse Oximetry (%) 99 Oxygen Delivery Method Room Air Intake Visit Reasons: BP check Intake Note: Blood pressure follow up Registration Manager Required: No Allergies Seasonal Allergies Allergy (Verified 11/22/24 11:50) Runny eyes, runny nose, congestion Tobacco use date assessed: 11/22/24 Dental Screening Dental Screen Date: 11/22/24 Did you have a dental visit in the last 12 months?: Yes Did you have a dental problem in the last 6 months where you did not have access to dental care?: No Was dental information given to patient?: Patient has dentist HPI HPI Comments History of Present Illness Details This is a 44-year-old female with a past medical history of anxiety, hypertension, mild intermittent asthma, obesity and sleep apnea presenting for follow up. She is living in the same house with her ex in her 2 sons. This is due to financial reasons. It is civil. Anxiety: stable on lexapro QUINTON: She saw sleep Medicine, and she is using a CPAP. This has been helpful. CV: hypertension. on chlorthalidone 12.5mg daily. Despite low calorie diet and exercising she has been Murmur-echocardiogram which showed no significant valve disease. Colonoscopy is scheduled in December. Mammogram [employer] exam up-to-date. Her Mother ovarian cancer age 47. Patient is BRCA negative. ROS CONSTITUTIONAL: Denies weight loss, fever and chills. HEENT: Denies changes in vision and hearing. RESPIRATORY: Denies SOB and cough. CV: Denies palpitations and CP GI: Denies abdominal pain, nausea, vomiting and diarrhea. : Denies dysuria and urinary frequency. MSK: Denies new myalgia and joint pain. SKIN: Denies rash and pruritus. NEUROLOGICAL: Denies headache PSYCHIATRIC: Denies recent changes in mood. PHYSICAL EXAM: GENERAL: Alert and oriented x 3. NAD EYES: EOMI. Anicteric. HENT: Moist mucous membranes. No scleral icterus. No cervical lymphadenopathy. LUNGS: Clear to auscultation bilaterally. CARDIOVASCULAR: Regular rate and rhythm. No murmur. No JVD. ABDOMEN: Soft, non-tender +bs EXTREMITIES: No edema. Non-tender. SKIN: No rashes or lesions. Warm. NEUROLOGIC: No focal neurological deficits. CN II-XII grossly intact PSYCHIATRIC: Cooperative. Appropriate mood and affect [facility] Medical History Routine physical examination Elevated LFTs Mild intermittent asthma in adult without complication Heart murmur Seasonal allergic rhinitis due to pollen Exercise-induced asthma Essential hypertension Anxiety Obesity with serious comorbidity QUINTON (obstructive sleep apnea) Sleep apnea Surgical History History of Family History Mother Ovarian cancer Substance abuse in family Mental health disorder Maternal Grandmother Ovarian cancer Breast cancer Maternal Aunt Mental health disorder Social History Housing: House Alcohol intake: current Patient Tobacco Use Status: Never used Tobacco e-Cigarette/Vaping Use: Never Used service: No Current occupational status: employed 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 [employer] Current occupational exposures/hazards: No Cognitive needs: No Hearing needs: No Vision needs: Yes (patient wears glasses) Questionnaire Thrive Questionnaire Date Thrive assessed: 10/11/24 I am a: Patient What is your living situation today?: I have a steady place to live Within the past 12 months, did the food you bought not last and you didn't have the money to get more?: I choose not to answer this question Within the past 12 months, did you worry whether your food would run out before you got money to buy more?: I choose not to answer this question Do you have trouble paying for medicines?: No Do you have trouble getting transportation to medical appointments?: No Do you have trouble paying your heating and electricity bill?: No Do you have trouble taking care of your child, family member or friend?: No Do you have trouble with day-to-day activities such as bathing, preparing meals, shopping, managing finances, etc.?: No Are you currently unemployed and looking for a job?: No Are you interested in more education?: No Please select the resources that you would like help with: None Currently or been in a relationship where the following occur: No concerns reported THRIVE Score: 0 AUDIT C Alcohol Use Questionnaire (AUDIT-C) 1. How often do you have a drink containing alcohol?: Monthly or less 2. How many drinks containing alcohol do you have on a typical day when you are drinking?: 1 or 2 3. How often do you have six or more drinks on one occasion?: Never Total Score: 1 NENA-7 AMB Questionnaire NENA-7 Date NENA - 7 assessed: 10/18/24 Source: Developed by Drs. Hema Britton, No Noyola, Luis Borja and colleagues, with an educational jimy from [employer]. Physical exam (Primary Care) Vital Signs: Last Vital Signs Pulse 73 11/22/24 11:52 Resp 16 11/22/24 11:52 BP 134/88 11/22/24 11:52 Pulse Ox 99 11/22/24 11:52 Oxygen Delivery Method Room Air 11/22/24 11:52 BMI result Body Mass Index 47.2 Tobacco/Smoking Status: Tobacco use Status Tobacco use date assessed 11/22/24 11/22/24 11:54 Patient Tobacco Use Status Never used Tobacco 11/22/24 11:54 e-Cigarette/Vaping Use Never Used 11/22/24 11:54 Thrive Assessment: Date of Thrive Assessment Date Thrive assessed 10/11/24 11/22/24 11:54 Currently or been in a relationship where the following occur: No concerns reported Coding Level of Care Code New Pt Level 4 (06695) Complex EM visit Add On G2211 Diagnoses Essential hypertension I10 Exercise-induced asthma J45.990 QUINTON (obstructive sleep apnea) G47.33 Assessment & Plan Assessment & Plan (1) Essential hypertension: Code(s): I10 - Essential (primary) hypertension Category: Medical (2) Exercise-induced asthma: Code(s): J45.990 - Exercise induced bronchospasm Category: Medical (3) QUINTON (obstructive sleep apnea): Code(s): G47.33 - Obstructive sleep apnea (adult) (pediatric) Category: Medical Plan 44 y/o for BP follow up BP improved control. Will continue current dose htn, obesity, quinton-GLP ordered Anxiety is stable on lexapro Medications: New Zepbound (tirzepatide (weight loss)) 5 mg (0.5 mL) subcut QWEEK 2 mL 3RF NS
[2024-11-22 11:52] VITALS: BP 134/88; PULSE 73; RESP 16; O2SAT 99; BMI 47.2
--- OUTSIDE RECORDS SUMMARY | 2024-11-22 12:59 | XMS_ITS | Patient Health Record ---
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 Name Role Phone KASSIE CERDA Unavailable [phone] Allergies No Known Allergies Reason For Referral No Information Medications Medication SIG (Take, Route, Frequency, Duration) Notes Start Date End Date Status Zepbound 2.5 MG/0.5ML Inject 2.5 mg Subcutaneous weekly for 28 days 11/16/2024 Active Chlorthalidone 25 MG Oral for 30 Days Active Escitalopram Oxalate 20 MG TAKE 1 TABLET DAILY Oral for 90 Days Active Problems Problem Type SNOMED Code ICD Code Onset Dates Problem Status W/U Status Risk Notes Problem 777215080 Mixed hyperlipidemia (E78.2) Active confirmed Problem 61331852 Essential (prima ry) hypertension (I10) Active confirmed Problem 91393398 Anxiety (F41.9) Active confirmed Problem 75072729 QUINTON (obstructive sleep apnea) (G47.33) Active confirmed Problem 615673501 Adult-onset obes ity (E66.9) Active confirmed Problem 242390373 BMI 45.0-49.9, adult (Z68.42) Active confirmed Vital Signs Heart Rate 99 /min 11/16/2024 Oximetry 98 % 11/16/2024 Blood pressure diastolic 86 mm Hg 11/16/2024 Height 62 in 11/16/2024 Blood pressure systolic 128 mm Hg 11/16/2024 Weight 265 lbs 11/16/2024 BMI 48.46 kg/m2 11/16/2024 Encounters Encounter Location Date Provider Diagnosis [facility] [address] [address] 11/16/2024 KASSIE CERDA Adult-onset obesity E66.9 ; BMI 45.0-49.9, adult Z68.42 ; Essential (primary) hypertension I10 ; QUINTON (obstructive sleep apnea) G47.33 ; Mixed hyperlipidemia E78.2 ; Anxiety F41.9 and Nutritional counseling Z71.3 [facility] [address] [place] [id number] 11/16/2024 KASSIE CERDA Assessments Encounter Date Diagnosis (ICD Code) Assessment Notes Treatment Notes Treatment Clinical Notes Section Notes 11/16/2024 Adult-onset obesity (ICD-10 - E66.9) Annemarie is a 44-year-old female with history of obesity who presents to the office today for weight management consult. Medical history, labs, allergies, medications, and social history reviewed with the patient. Provided education on healthy diet and lifestyle which includes high-protein, low carbohydrate, high-fiber, and a variety of fruits and vegetables. Patient encouraged to exercise with emphasis on resistance training minimum 3 times per week to maintain muscle mass and cardio to burn fat. All patient questions answered. Patient will follow-up in 2 to 4 weeks for weight management. 11/16/2024: Weight 265 pounds, BMI 48.46. Seca scan completed and discussed with the patient. On body analysis approximately 60% of the patient's weight is fat mass. Visceral adiposity is high. Has lower amounts of muscle mass. Patient has trialed several diets over the past several years for weight loss. Has also been more active participating in both regular walking and biking and has not had significant change in her weight. Based on her several comorbidities she would be a good candidate for Zepbound. We discussed proper use of the medication and its potential side effects including but not limited to nausea, constipation, abdominal pain, and heartburn. Patient has no history of pancreatitis and no personal or family history of medullary thyroid cancer or multiple endocrine neoplasia syndrome. She will follow-up in office in 4 to 6 weeks. # Hypertension: Blood pressure stable in office. Continue chlorthalidone 25 mg half tablet daily. # Anxiety: Continue escitalopram 20 mg once daily. # QUINTON: Sleep study last year through [facility] sleep medicine services. Continue nightly use of CPAP. Will begin Zepbound weekly. # Hyperlipidemia: Patient reports elevation in LDL on recent labs. Continue diet control. Patient was reassured and welcomed to the practice. We discussed that we stress a hollistic medical approach with emphasis on lifestyle modification. Patient was informed that a healthy lifestyle with exercise and good eating habits can help reduce their risk of medical complications. Patient is explained that obesity increases their risk of diabetes, cardiovascular disease, or organ damage. We spent a lot of time discussing the relationship between food, exercise, sleep, mental health and obesity. Patient was counseled on the importance EATING local, organic food when possible. Patient was educated on clean 15 and dirty dozen. I provided information about reading books called The Food Rules by Eliazar Denny and Eat Fat Get Lean by Dr Dandre Mays. Self education is important in the journey for weight management. Patient was offered diagnostic testing/ SECA scale. We want to measure visceral adiposity, advanced body composition, adverse lipids, fatty acid balance, risk for heart disease and atherosclerosis, markers of inflammation and genetic susceptibility. Patient was counseled on weight management and was advised to lose weight using A. Meal Replacement Products Patient was educated on the replacement products called optifast. This is a good way of taking fixed amount of calories. It has been shown in studies to be ineffective weight management tool. This however has to be coupled with lifestyle intervention as well as laboratory data and EKG monitoring. It is impossible to know how a person will tolerate complete meal replacement. The side effects of meal replacement and weight loss could include syncopal attacks, dizziness, gallstones, potential cholecystectomy, possible heart attack and even . The benefits of meal replacement would be potential weight loss but no guarantees can be made. Meal replacement products are not covered by insurance. Once the patient has bought these products we cannot return them B. Lifestyle management which includes several strategies as below 1. Eat a low carbohydrate good fat good protein diet. Eliminate refined carbohydrates from the diet. Limit sugared beverages. Eat local organic when possible. Cook your own meals. Read food labels. Focus on healthy snacks. Portion control and food with low glycemic index 2. Exercise regularly. Try to get at least 6000 steps a day. Use a predominant to track activity level. Consider using apps like 7 minute excercise, myCodeshippal, lose it, stick as needed for self-monitoring and weight management. Consider group exercises. Consider hiring a personal coach. Regular exercise is moise to sustainable health and prevents as a buffer against weight regain 3. Sleep is most important for healing. Try to sleep at least 6-8 hours a night. A good quality sleep needs a sleep ritual with ideal room temperature of around 68. It might help to take a shower and have no electronics in the room and sleep in a very dark room without artificial light. Start sleep routine and get up early in the morning and go to bed on time. 4. Make a social connection. Surround yourself with positive people with positive energy. Connect with friends and family. 5. Get into the habit of meditating and mindfulness while doing everything. 6. Go outside and connect with nature. C. Prescription medications Patient was educated on the use of prescription medications for medical weight loss. This is a growing list and includes phentermine, Topamax,Qsymia, contrave, belviq and saxenda, wegovy etc. All prescription medications could have side effects including but not limited to kidney stones, seizure disorder cardiac arrhythmias heart attack pancreatitis, GI effects, Etc. Patient was encouraged to read the prescription insert and have coaching with their pharmacist and make an informed decision about taking medication and know that these medications are being prescribed with good intentions and we do not know how a patient would react to the medication. Some medications are FDA approved for weight loss and there is also off label use depending on patient's inability to afford medications in an attempt to lose weight D. Behavioral counseling was done to establish a relationship between food and an mood. Patient was provided information about local counseling and psychiatry and Dr Kirkland at [email or web address]. We would like to cover regular topics and build on low glycemic eating exercise mindful eating, using yoga and meditation along with deep breathing and connecting with friends and family. E. MASS PAT reviewed, Patient's current medications were reviewed and opinion was given on medication that can cause weight gain and can be substituted F. Patient was assessed for risk with obesity including and not limiting to atherosclerosis heart disease stroke kidney disease, restrictive lung disease, irritable bowel syndrome and overall mortality. Risk of developing prediabetes diabetes and metabolic syndrome was discussed G. Therapeutic plan: We have decided to make therapeutic plan which would include choosing wisely on calories restricting portion getting active, tracking weight, getting good quality sleep and working on time management H. Patient will follow up in 4 weeks for weight management Total time spent today was 60 minutes of which greater than 50% was spent on coordinating and counseling After consultation and careful review of medical history, this patient would benefit from Zepbound based off of the following criteria met: Patient is over the age of 18, has a BMI of 48.46. Additional comorbidities include hypertension, hyperlipidemia, anxiety, and obstructive sleep apnea. Patient has trialed other methods of weight loss including improving diet, exercise without success over three months. This medication is prescribed by or in consultation with a board certified obesity and weight management physician (Dr. Melia Middleton or Dr. Shweta Middleton). All questions have been answered to patient's satisfaction. Patient verbalized understanding of diagnosis and treatments explained. Advised to call sooner prior to next visit it any questions/concerns arise. Case discussed with collaborating physician Lissy Middleton who reviewed the assessment and plan. Chart, medications, labs, vital signs reviewed. Dictation was accomplished with the use of [employer] voice recognition software, which is prone to medical misidentifications and grammatical errors. This are unintentional and the practitioner does try to identify and correct these, but some could still be present. Please do not hesitate to contact practitioner for clarification. 11/16/2024 BMI 45.0-49.9, adult (ICD-10 - Z68.42) Annemarie is a 44-year-old female with history of obesity who presents to the office today for weight management consult. Medical history, labs, allergies, medications, and social history reviewed with the patient. Provided education on healthy diet and lifestyle which includes high-protein, low carbohydrate, high-fiber, and a variety of fruits and vegetables. Patient encouraged to exercise with emphasis on resistance training minimum 3 times per week to maintain muscle mass and cardio to burn fat. All patient questions answered. Patient will follow-up in 2 to 4 weeks for weight management. 11/16/2024: Weight 265 pounds, BMI 48.46. Seca scan completed and discussed with the patient. On body analysis approximately 60% of the patient's weight is fat mass. Visceral adiposity is high. Has lower amounts of muscle mass. Patient has trialed several diets over the past several years for weight loss. Has also been more active participating in both regular walking and biking and has not had significant change in her weight. Based on her several comorbidities she would be a good candidate for Zepbound. We discussed proper use of the medication and its potential side effects including but not limited to nausea, constipation, abdominal pain, and heartburn. Patient has no history of pancreatitis and no personal or family history of medullary thyroid cancer or multiple endocrine neoplasia syndrome. She will follow-up in office in 4 to 6 weeks. # Hypertension: Blood pressure stable in office. Continue chlorthalidone 25 mg half tablet daily. # Anxiety: Continue escitalopram 20 mg once daily. # QUINTON: Sleep study last year through [facility] sleep medicine services. Continue nightly use of CPAP. Will begin Zepbound weekly. # Hyperlipidemia: Patient reports elevation in LDL on recent labs. Continue diet control. Patient was reassured and welcomed to the practice. We discussed that we stress a hollistic medical approach with emphasis on lifestyle modification. Patient was informed that a healthy lifestyle with exercise and good eating habits can help reduce their risk of medical complications. Patient is explained that obesity increases their risk of diabetes, cardiovascular disease, or organ damage. We spent a lot of time discussing the relationship between food, exercise, sleep, mental health and obesity. Patient was counseled on the importance EATING local, organic food when possible. Patient was educated on clean 15 and dirty dozen. I provided information about reading books called The Food Rules by Eliazar Denny and Eat Fat Get Lean by Dr Dandre Mays. Self education is important in the journey for weight management. Patient was offered diagnostic testing/ SECA scale. We want to measure visceral adiposity, advanced body composition, adverse lipids, fatty acid balance, risk for heart disease and atherosclerosis, markers of inflammation and genetic susceptibility. Patient was counseled on weight management and was advised to lose weight using A. Meal Replacement Products Patient was educated on the replacement products called optifast. This is a good way of taking fixed amount of calories. It has been shown in studies to be ineffective weight management tool. This however has to be coupled with lifestyle intervention as well as laboratory data and EKG monitoring. It is impossible to know how a person will tolerate complete meal replacement. The side effects of meal replacement and weight loss could include syncopal attacks, dizziness, gallstones, potential cholecystectomy, possible heart attack and even . The benefits of meal replacement would be potential weight loss but no guarantees can be made. Meal replacement products are not covered by insurance. Once the patient has bought these products we cannot return them B. Lifestyle management which includes several strategies as below 1. Eat a low carbohydrate good fat good protein diet. Eliminate refined carbohydrates from the diet. Limit sugared beverages. Eat local organic when possible. Cook your own meals. Read food labels. Focus on healthy snacks. Portion control and food with low glycemic index 2. Exercise regularly. Try to get at least 6000 steps a day. Use a predominant to track activity level. Consider using apps like 7 minute excercise, myCodeshippal, lose it, stick as needed for self-monitoring and weight management. Consider group exercises. Consider hiring a personal coach. Regular exercise is moise to sustainable health and prevents as a buffer against weight regain 3. Sleep is most important for healing. Try to sleep at least 6-8 hours a night. A good quality sleep needs a sleep ritual with ideal room temperature of around 68. It might help to take a shower and have no electronics in the room and sleep in a very dark room without artificial light. Start sleep routine and get up early in the morning and go to bed on time. 4. Make a social connection. Surround yourself with positive people with positive energy. Connect with friends and family. 5. Get into the habit of meditating and mindfulness while doing everything. 6. Go outside and connect with nature. C. Prescription medications Patient was educated on the use of prescription medications for medical weight loss. This is a growing list and includes phentermine, Topamax,Qsymia, contrave, belviq and saxenda, wegovy etc. All prescription medications could have side effects including but not limited to kidney stones, seizure disorder cardiac arrhythmias heart attack pancreatitis, GI effects, Etc. Patient was encouraged to read the prescription insert and have coaching with their pharmacist and make an informed decision about taking medication and know that these medications are being prescribed with good intentions and we do not know how a patient would react to the medication. Some medications are FDA approved for weight loss and there is also off label use depending on patient's inability to afford medications in an attempt to lose weight D. Behavioral counseling was done to establish a relationship between food and an mood. Patient was provided information about local counseling and psychiatry and Dr Kirkland at [email or web address]. We would like to cover regular topics and build on low glycemic eating exercise mindful eating, using yoga and meditation along with deep breathing and connecting with friends and family. E. MASS PAT reviewed, Patient's current medications were reviewed and opinion was given on medication that can cause weight gain and can be substituted F. Patient was assessed for risk with obesity including and not limiting to atherosclerosis heart disease stroke kidney disease, restrictive lung disease, irritable bowel syndrome and overall mortality. Risk of developing prediabetes diabetes and metabolic syndrome was discussed G. Therapeutic plan: We have decided to make therapeutic plan which would include choosing wisely on calories restricting portion getting active, tracking weight, getting good quality sleep and working on time management H. Patient will follow up in 4 weeks for weight management Total time spent today was 60 minutes of which greater than 50% was spent on coordinating and counseling After consultation and careful review of medical history, this patient would benefit from Zepbound based off of the following criteria met: Patient is over the age of 18, has a BMI of 48.46. Additional comorbidities include hypertension, hyperlipidemia, anxiety, and obstructive sleep apnea. Patient has trialed other methods of weight loss including improving diet, exercise without success over three months. This medication is prescribed by or in consultation with a board certified obesity and weight management physician (Dr. Melia Middleton or Dr. Shweta Middleton). All questions have been answered to patient's satisfaction. Patient verbalized understanding of diagnosis and treatments explained. Advised to call sooner prior to next visit it any questions/concerns arise. Case discussed with collaborating physician Lissy Middleton who reviewed the assessment and plan. Chart, medications, labs, vital signs reviewed. Dictation was accomplished with the use of [employer] voice recognition software, which is prone to medical misidentifications and grammatical errors. This are unintentional and the practitioner does try to identify and correct these, but some could still be present. Please do not hesitate to contact practitioner for clarification. 11/16/2024 Essential (primary) hypertension (ICD-10 - I10) Annemarie is a 44-year-old female with history of obesity who presents to the office today for weight management consult. Medical history, labs, allergies, medications, and social history reviewed with the patient. Provided education on healthy diet and lifestyle which includes high-protein, low carbohydrate, high-fiber, and a variety of fruits and vegetables. Patient encouraged to exercise with emphasis on resistance training minimum 3 times per week to maintain muscle mass and cardio to burn fat. All patient questions answered. Patient will follow-up in 2 to 4 weeks for weight management. 11/16/2024: Weight 265 pounds, BMI 48.46. Seca scan completed and discussed with the patient. On body analysis approximately 60% of the patient's weight is fat mass. Visceral adiposity is high. Has lower amounts of muscle mass. Patient has trialed several diets over the past several years for weight loss. Has also been more active participating in both regular walking and biking and has not had significant change in her weight. Based on her several comorbidities she would be a good candidate for Zepbound. We discussed proper use of the medication and its potential side effects including but not limited to nausea, constipation, abdominal pain, and heartburn. Patient has no history of pancreatitis and no personal or family history of medullary thyroid cancer or multiple endocrine neoplasia syndrome. She will follow-up in office in 4 to 6 weeks. # Hypertension: Blood pressure stable in office. Continue chlorthalidone 25 mg half tablet daily. # Anxiety: Continue escitalopram 20 mg once daily. # QUINTON: Sleep study last year through [facility] sleep medicine services. Continue nightly use of CPAP. Will begin Zepbound weekly. # Hyperlipidemia: Patient reports elevation in LDL on recent labs. Continue diet control. Patient was reassured and welcomed to the practice. We discussed that we stress a hollistic medical approach with emphasis on lifestyle modification. Patient was informed that a healthy lifestyle with exercise and good eating habits can help reduce their risk of medical complications. Patient is explained that obesity increases their risk of diabetes, cardiovascular disease, or organ damage. We spent a lot of time discussing the relationship between food, exercise, sleep, mental health and obesity. Patient was counseled on the importance EATING local, organic food when possible. Patient was educated on clean 15 and dirty dozen. I provided information about reading books called The Food Rules by Eliazar Denny and Eat Fat Get Lean by Dr Dandre Mays. Self education is important in the journey for weight management. Patient was offered diagnostic testing/ SECA scale. We want to measure visceral adiposity, advanced body composition, adverse lipids, fatty acid balance, risk for heart disease and atherosclerosis, markers of inflammation and genetic susceptibility. Patient was counseled on weight management and was advised to lose weight using A. Meal Replacement Products Patient was educated on the replacement products called optifast. This is a good way of taking fixed amount of calories. It has been shown in studies to be ineffective weight management tool. This however has to be coupled with lifestyle intervention as well as laboratory data and EKG monitoring. It is impossible to know how a person will tolerate complete meal replacement. The side effects of meal replacement and weight loss could include syncopal attacks, dizziness, gallstones, potential cholecystectomy, possible heart attack and even . The benefits of meal replacement would be potential weight loss but no guarantees can be made. Meal replacement products are not covered by insurance. Once the patient has bought these products we cannot return them B. Lifestyle management which includes several strategies as below 1. Eat a low carbohydrate good fat good protein diet. Eliminate refined carbohydrates from the diet. Limit sugared beverages. Eat local organic when possible. Cook your own meals. Read food labels. Focus on healthy snacks. Portion control and food with low glycemic index 2. Exercise regularly. Try to get at least 6000 steps a day. Use a predominant to track activity level. Consider using apps like 7 minute excercise, [employer], lose it, stick as needed for self-monitoring and weight management. Consider group exercises. Consider hiring a personal coach. Regular exercise is moise to sustainable health and prevents as a buffer against weight regain 3. Sleep is most important for healing. Try to sleep at least 6-8 hours a night. A good quality sleep needs a sleep ritual with ideal room temperature of around 68. It might help to take a shower and have no electronics in the room and sleep in a very dark room without artificial light. Start sleep routine and get up early in the morning and go to bed on time. 4. Make a social connection. Surround yourself with positive people with positive energy. Connect with friends and family. 5. Get into the habit of meditating and mindfulness while doing everything. 6. Go outside and connect with nature. C. Prescription medications Patient was educated on the use of prescription medications for medical weight loss. This is a growing list and includes phentermine, Topamax,Qsymia, contrave, belviq and saxenda, wegovy etc. All prescription medications could have side effects including but not limited to kidney stones, seizure disorder cardiac arrhythmias heart attack pancreatitis, GI effects, Etc. Patient was encouraged to read the prescription insert and have coaching with their pharmacist and make an informed decision about taking medication and know that these medications are being prescribed with good intentions and we do not know how a patient would react to the medication. Some medications are FDA approved for weight loss and there is also off label use depending on patient's inability to afford medications in an attempt to lose weight D. Behavioral counseling was done to establish a relationship between food and an mood. Patient was provided information about local counseling and psychiatry and Dr Kirkland at [email or web address]. We would like to cover regular topics and build on low glycemic eating exercise mindful eating, using yoga and meditation along with deep breathing and connecting with friends and family. E. MASS PAT reviewed, Patient's current medications were reviewed and opinion was given on medication that can cause weight gain and can be substituted F. Patient was assessed for risk with obesity including and not limiting to atherosclerosis heart disease stroke kidney disease, restrictive lung disease, irritable bowel syndrome and overall mortality. Risk of developing prediabetes diabetes and metabolic syndrome was discussed G. Therapeutic plan: We have decided to make therapeutic plan which would include choosing wisely on calories restricting portion getting active, tracking weight, getting good quality sleep and working on time management H. Patient will follow up in 4 weeks for weight management Total time spent today was 60 minutes of which greater than 50% was spent on coordinating and counseling After consultation and careful review of medical history, this patient would benefit from Zepbound based off of the following criteria met: Patient is over the age of 18, has a BMI of 48.46. Additional comorbidities include hypertension, hyperlipidemia, anxiety, and obstructive sleep apnea. Patient has trialed other methods of weight loss including improving diet, exercise without success over three months. This medication is prescribed by or in consultation with a board certified obesity and weight management physician (Dr. Melia Middleton or Dr. Shweta Middleton). All questions have been answered to patient's satisfaction. Patient verbalized understanding of diagnosis and treatments explained. Advised to call sooner prior to next visit it any questions/concerns arise. Case discussed with collaborating physician Lissy Middleton who reviewed the assessment and plan. Chart, medications, labs, vital signs reviewed. Dictation was accomplished with the use of Singularu voice recognition software, which is prone to medical misidentifications and grammatical errors. This are unintentional and the practitioner does try to identify and correct these, but some could still be present. Please do not hesitate to contact practitioner for clarification. 11/16/2024 QUINTON (obstructive sleep apnea) (ICD-10 - G47.33) Annemarie is a 44-year-old female with history of obesity who presents to the office today for weight management consult. Medical history, labs, allergies, medications, and social history reviewed with the patient. Provided education on healthy diet and lifestyle which includes high-protein, low carbohydrate, high-fiber, and a variety of fruits and vegetables. Patient encouraged to exercise with emphasis on resistance training minimum 3 times per week to maintain muscle mass and cardio to burn fat. All patient questions answered. Patient will follow-up in 2 to 4 weeks for weight management. 11/16/2024: Weight 265 pounds, BMI 48.46. Seca scan completed and discussed with the patient. On body analysis approximately 60% of the patient's weight is fat mass. Visceral adiposity is high. Has lower amounts of muscle mass. Patient has trialed several diets over the past several years for weight loss. Has also been more active participating in both regular walking and biking and has not had significant change in her weight. Based on her several comorbidities she would be a good candidate for Zepbound. We discussed proper use of the medication and its potential side effects including but not limited to nausea, constipation, abdominal pain, and heartburn. Patient has no history of pancreatitis and no personal or family history of medullary thyroid cancer or multiple endocrine neoplasia syndrome. She will follow-up in office in 4 to 6 weeks. # Hypertension: Blood pressure stable in office. Continue chlorthalidone 25 mg half tablet daily. # Anxiety: Continue escitalopram 20 mg once daily. # QUINTON: Sleep study last year through [facility] sleep medicine services. Continue nightly use of CPAP. Will begin Zepbound weekly. # Hyperlipidemia: Patient reports elevation in LDL on recent labs. Continue diet control. Patient was reassured and welcomed to the practice. We discussed that we stress a hollistic medical approach with emphasis on lifestyle modification. Patient was informed that a healthy lifestyle with exercise and good eating habits can help reduce their risk of medical complications. Patient is explained that obesity increases their risk of diabetes, cardiovascular disease, or organ damage. We spent a lot of time discussing the relationship between food, exercise, sleep, mental health and obesity. Patient was counseled on the importance EATING local, organic food when possible. Patient was educated on clean 15 and dirty dozen. I provided information about reading books called The Food Rules by Eliazar Denny and Eat Fat Get Lean by Dr Dandre Mays. Self education is important in the journey for weight management. Patient was offered diagnostic testing/ SECA scale. We want to measure visceral adiposity, advanced body composition, adverse lipids, fatty acid balance, risk for heart disease and atherosclerosis, markers of inflammation and genetic susceptibility. Patient was counseled on weight management and was advised to lose weight using A. Meal Replacement Products Patient was educated on the replacement products called optifast. This is a good way of taking fixed amount of calories. It has been shown in studies to be ineffective weight management tool. This however has to be coupled with lifestyle intervention as well as laboratory data and EKG monitoring. It is impossible to know how a person will tolerate complete meal replacement. The side effects of meal replacement and weight loss could include syncopal attacks, dizziness, gallstones, potential cholecystectomy, possible heart attack and even . The benefits of meal replacement would be potential weight loss but no guarantees can be made. Meal replacement products are not covered by insurance. Once the patient has bought these products we cannot return them B. Lifestyle management which includes several strategies as below 1. Eat a low carbohydrate good fat good protein diet. Eliminate refined carbohydrates from the diet. Limit sugared beverages. Eat local organic when possible. Cook your own meals. Read food labels. Focus on healthy snacks. Portion control and food with low glycemic index 2. Exercise regularly. Try to get at least 6000 steps a day. Use a predominant to track activity level. Consider using apps like 7 minute excercise, myfitnesspal, lose it, stick as needed for self-monitoring and weight management. Consider group exercises. Consider hiring a personal coach. Regular exercise is moise to sustainable health and prevents as a buffer against weight regain 3. Sleep is most important for healing. Try to sleep at least 6-8 hours a night. A good quality sleep needs a sleep ritual with ideal room temperature of around 68. It might help to take a shower and have no electronics in the room and sleep in a very dark room without artificial light. Start sleep routine and get up early in the morning and go to bed on time. 4. Make a social connection. Surround yourself with positive people with positive energy. Connect with friends and family. 5. Get into the habit of meditating and mindfulness while doing everything. 6. Go outside and connect with nature. C. Prescription medications Patient was educated on the use of prescription medications for medical weight loss. This is a growing list and includes phentermine, Topamax,Qsymia, contrave, belviq and saxenda, wegovy etc. All prescription medications could have side effects including but not limited to kidney stones, seizure disorder cardiac arrhythmias heart attack pancreatitis, GI effects, Etc. Patient was encouraged to read the prescription insert and have coaching with their pharmacist and make an informed decision about taking medication and know that these medications are being prescribed with good intentions and we do not know how a patient would react to the medication. Some medications are FDA approved for weight loss and there is also off label use depending on patient's inability to afford medications in an attempt to lose weight D. Behavioral counseling was done to establish a relationship between food and an mood. Patient was provided information about local counseling and psychiatry and Dr Kirkland at [email or web address]. We would like to cover regular topics and build on low glycemic eating exercise mindful eating, using yoga and meditation along with deep breathing and connecting with friends and family. E. MASS PAT reviewed, Patient's current medications were reviewed and opinion was given on medication that can cause weight gain and can be substituted F. Patient was assessed for risk with obesity including and not limiting to atherosclerosis heart disease stroke kidney disease, restrictive lung disease, irritable bowel syndrome and overall mortality. Risk of developing prediabetes diabetes and metabolic syndrome was discussed G. Therapeutic plan: We have decided to make therapeutic plan which would include choosing wisely on calories restricting portion getting active, tracking weight, getting good quality sleep and working on time management H. Patient will follow up in 4 weeks for weight management Total time spent today was 60 minutes of which greater than 50% was spent on coordinating and counseling After consultation and careful review of medical history, this patient would benefit from Zepbound based off of the following criteria met: Patient is over the age of 18, has a BMI of 48.46. Additional comorbidities include hypertension, hyperlipidemia, anxiety, and obstructive sleep apnea. Patient has trialed other methods of weight loss including improving diet, exercise without success over three months. This medication is prescribed by or in consultation with a board certified obesity and weight management physician (Dr. Melia Middleton or Dr. Shweta Middleton). All questions have been answered to patient's satisfaction. Patient verbalized understanding of diagnosis and treatments explained. Advised to call sooner prior to next visit it any questions/concerns arise. Case discussed with collaborating physician Lissy Middleton who reviewed the assessment and plan. Chart, medications, labs, vital signs reviewed. Dictation was accomplished with the use of Singular[employer] voice recognition software, which is prone to medical misidentifications and grammatical errors. This are unintentional and the practitioner does try to identify and correct these, but some could still be present. Please do not hesitate to contact practitioner for clarification. 11/16/2024 Mixed hyperlipidemia (ICD-10 - E78.2) Annemarie is a 44-year-old female with history of obesity who presents to the office today for weight management consult. Medical history, labs, allergies, medications, and social history reviewed with the patient. Provided education on healthy diet and lifestyle which includes high-protein, low carbohydrate, high-fiber, and a variety of fruits and vegetables. Patient encouraged to exercise with emphasis on resistance training minimum 3 times per week to maintain muscle mass and cardio to burn fat. All patient questions answered. Patient will follow-up in 2 to 4 weeks for weight management. 11/16/2024: Weight 265 pounds, BMI 48.46. Seca scan completed and discussed with the patient. On body analysis approximately 60% of the patient's weight is fat mass. Visceral adiposity is high. Has lower amounts of muscle mass. Patient has trialed several diets over the past several years for weight loss. Has also been more active participating in both regular walking and biking and has not had significant change in her weight. Based on her several comorbidities she would be a good candidate for Zepbound. We discussed proper use of the medication and its potential side effects including but not limited to nausea, constipation, abdominal pain, and heartburn. Patient has no history of pancreatitis and no personal or family history of medullary thyroid cancer or multiple endocrine neoplasia syndrome. She will follow-up in office in 4 to 6 weeks. # Hypertension: Blood pressure stable in office. Continue chlorthalidone 25 mg half tablet daily. # Anxiety: Continue escitalopram 20 mg once daily. # QUINTON: Sleep study last year through [facility] sleep medicine services. Continue nightly use of CPAP. Will begin Zepbound weekly. # Hyperlipidemia: Patient reports elevation in LDL on recent labs. Continue diet control. Patient was reassured and welcomed to the practice. We discussed that we stress a hollistic medical approach with emphasis on lifestyle modification. Patient was informed that a healthy lifestyle with exercise and good eating habits can help reduce their risk of medical complications. Patient is explained that obesity increases their risk of diabetes, cardiovascular disease, or organ damage. We spent a lot of time discussing the relationship between food, exercise, sleep, mental health and obesity. Patient was counseled on the importance EATING local, organic food when possible. Patient was educated on clean 15 and dirty dozen. I provided information about reading books called The Food Rules by Eliazar Denny and Eat Fat Get Lean by Dr Dandre Mays. Self education is important in the journey for weight management. Patient was offered diagnostic testing/ SECA scale. We want to measure visceral adiposity, advanced body composition, adverse lipids, fatty acid balance, risk for heart disease and atherosclerosis, markers of inflammation and genetic susceptibility. Patient was counseled on weight management and was advised to lose weight using A. Meal Replacement Products Patient was educated on the replacement products called optifast. This is a good way of taking fixed amount of calories. It has been shown in studies to be ineffective weight management tool. This however has to be coupled with lifestyle intervention as well as laboratory data and EKG monitoring. It is impossible to know how a person will tolerate complete meal replacement. The side effects of meal replacement and weight loss could include syncopal attacks, dizziness, gallstones, potential cholecystectomy, possible heart attack and even . The benefits of meal replacement would be potential weight loss but no guarantees can be made. Meal replacement products are not covered by insurance. Once the patient has bought these products we cannot return them B. Lifestyle management which includes several strategies as below 1. Eat a low carbohydrate good fat good protein diet. Eliminate refined carbohydrates from the diet. Limit sugared beverages. Eat local organic when possible. Cook your own meals. Read food labels. Focus on healthy snacks. Portion control and food with low glycemic index 2. Exercise regularly. Try to get at least 6000 steps a day. Use a predominant to track activity level. Consider using apps like 7 minute excercise, myCodeshippal, lose it, stick as needed for self-monitoring and weight management. Consider group exercises. Consider hiring a personal coach. Regular exercise is moise to sustainable health and prevents as a buffer against weight regain 3. Sleep is most important for healing. Try to sleep at least 6-8 hours a night. A good quality sleep needs a sleep ritual with ideal room temperature of around 68. It might help to take a shower and have no electronics in the room and sleep in a very dark room without artificial light. Start sleep routine and get up early in the morning and go to bed on time. 4. Make a social connection. Surround yourself with positive people with positive energy. Connect with friends and family. 5. Get into the habit of meditating and mindfulness while doing everything. 6. Go outside and connect with nature. C. Prescription medications Patient was educated on the use of prescription medications for medical weight loss. This is a growing list and includes phentermine, Topamax,Qsymia, contrave, belviq and saxenda, wegovy etc. All prescription medications could have side effects including but not limited to kidney stones, seizure disorder cardiac arrhythmias heart attack pancreatitis, GI effects, Etc. Patient was encouraged to read the prescription insert and have coaching with their pharmacist and make an informed decision about taking medication and know that these medications are being prescribed with good intentions and we do not know how a patient would react to the medication. Some medications are FDA approved for weight loss and there is also off label use depending on patient's inability to afford medications in an attempt to lose weight D. Behavioral counseling was done to establish a relationship between food and an mood. Patient was provided information about local counseling and psychiatry and Dr Kirkland at [email or web address]. We would like to cover regular topics and build on low glycemic eating exercise mindful eating, using yoga and meditation along with deep breathing and connecting with friends and family. E. MASS PAT reviewed, Patient's current medications were reviewed and opinion was given on medication that can cause weight gain and can be substituted F. Patient was assessed for risk with obesity including and not limiting to atherosclerosis heart disease stroke kidney disease, restrictive lung disease, irritable bowel syndrome and overall mortality. Risk of developing prediabetes diabetes and metabolic syndrome was discussed G. Therapeutic plan: We have decided to make therapeutic plan which would include choosing wisely on calories restricting portion getting active, tracking weight, getting good quality sleep and working on time management H. Patient will follow up in 4 weeks for weight management Total time spent today was 60 minutes of which greater than 50% was spent on coordinating and counseling After consultation and careful review of medical history, this patient would benefit from Zepbound based off of the following criteria met: Patient is over the age of 18, has a BMI of 48.46. Additional comorbidities include hypertension, hyperlipidemia, anxiety, and obstructive sleep apnea. Patient has trialed other methods of weight loss including improving diet, exercise without success over three months. This medication is prescribed by or in consultation with a board certified obesity and weight management physician (Dr. Melia Middleton or Dr. Shweta Middleton). All questions have been answered to patient's satisfaction. Patient verbalized understanding of diagnosis and treatments explained. Advised to call sooner prior to next visit it any questions/concerns arise. Case discussed with collaborating physician Lissy Middleton who reviewed the assessment and plan. Chart, medications, labs, vital signs reviewed. Dictation was accomplished with the use of [employer]u voice recognition software, which is prone to medical misidentifications and grammatical errors. This are unintentional and the practitioner does try to identify and correct these, but some could still be present. Please do not hesitate to contact practitioner for clarification. 11/16/2024 Anxiety (ICD-10 - F41.9) Annemarie is a 44-year-old female with history of obesity who presents to the office today for weight management consult. Medical history, labs, allergies, medications, and social history reviewed with the patient. Provided education on healthy diet and lifestyle which includes high-protein, low carbohydrate, high-fiber, and a variety of fruits and vegetables. Patient encouraged to exercise with emphasis on resistance training minimum 3 times per week to maintain muscle mass and cardio to burn fat. All patient questions answered. Patient will follow-up in 2 to 4 weeks for weight management. 11/16/2024: Weight 265 pounds, BMI 48.46. Seca scan completed and discussed with the patient. On body analysis approximately 60% of the patient's weight is fat mass. Visceral adiposity is high. Has lower amounts of muscle mass. Patient has trialed several diets over the past several years for weight loss. Has also been more active participating in both regular walking and biking and has not had significant change in her weight. Based on her several comorbidities she would be a good candidate for Zepbound. We discussed proper use of the medication and its potential side effects including but not limited to nausea, constipation, abdominal pain, and heartburn. Patient has no history of pancreatitis and no personal or family history of medullary thyroid cancer or multiple endocrine neoplasia syndrome. She will follow-up in office in 4 to 6 weeks. # Hypertension: Blood pressure stable in office. Continue chlorthalidone 25 mg half tablet daily. # Anxiety: Continue escitalopram 20 mg once daily. # QUINTON: Sleep study last year through [facility] sleep medicine services. Continue nightly use of CPAP. Will begin Zepbound weekly. # Hyperlipidemia: Patient reports elevation in LDL on recent labs. Continue diet control. Patient was reassured and welcomed to the practice. We discussed that we stress a hollistic medical approach with emphasis on lifestyle modification. Patient was informed that a healthy lifestyle with exercise and good eating habits can help reduce their risk of medical complications. Patient is explained that obesity increases their risk of diabetes, cardiovascular disease, or organ damage. We spent a lot of time discussing the relationship between food, exercise, sleep, mental health and obesity. Patient was counseled on the importance EATING local, organic food when possible. Patient was educated on clean 15 and dirty dozen. I provided information about reading books called The Food Rules by Eliazar Denny and Eat Fat Get Lean by Dr Dandre Mays. Self education is important in the journey for weight management. Patient was offered diagnostic testing/ SECA scale. We want to measure visceral adiposity, advanced body composition, adverse lipids, fatty acid balance, risk for heart disease and atherosclerosis, markers of inflammation and genetic susceptibility. Patient was counseled on weight management and was advised to lose weight using A. Meal Replacement Products Patient was educated on the replacement products called optifast. This is a good way of taking fixed amount of calories. It has been shown in studies to be ineffective weight management tool. This however has to be coupled with lifestyle intervention as well as laboratory data and EKG monitoring. It is impossible to know how a person will tolerate complete meal replacement. The side effects of meal replacement and weight loss could include syncopal attacks, dizziness, gallstones, potential cholecystectomy, possible heart attack and even . The benefits of meal replacement would be potential weight loss but no guarantees can be made. Meal replacement products are not covered by insurance. Once the patient has bought these products we cannot return them B. Lifestyle management which includes several strategies as below 1. Eat a low carbohydrate good fat good protein diet. Eliminate refined carbohydrates from the diet. Limit sugared beverages. Eat local organic when possible. Cook your own meals. Read food labels. Focus on healthy snacks. Portion control and food with low glycemic index 2. Exercise regularly. Try to get at least 6000 steps a day. Use a predominant to track activity level. Consider using apps like 7 minute excercise, myCodeshippal, lose it, stick as needed for self-monitoring and weight management. Consider group exercises. Consider hiring a personal coach. Regular exercise is moise to sustainable health and prevents as a buffer against weight regain 3. Sleep is most important for healing. Try to sleep at least 6-8 hours a night. A good quality sleep needs a sleep ritual with ideal room temperature of around 68. It might help to take a shower and have no electronics in the room and sleep in a very dark room without artificial light. Start sleep routine and get up early in the morning and go to bed on time. 4. Make a social connection. Surround yourself with positive people with positive energy. Connect with friends and family. 5. Get into the habit of meditating and mindfulness while doing everything. 6. Go outside and connect with nature. C. Prescription medications Patient was educated on the use of prescription medications for medical weight loss. This is a growing list and includes phentermine, Topamax,Qsymia, contrave, belviq and saxenda, wegovy etc. All prescription medications could have side effects including but not limited to kidney stones, seizure disorder cardiac arrhythmias heart attack pancreatitis, GI effects, Etc. Patient was encouraged to read the prescription insert and have coaching with their pharmacist and make an informed decision about taking medication and know that these medications are being prescribed with good intentions and we do not know how a patient would react to the medication. Some medications are FDA approved for weight loss and there is also off label use depending on patient's inability to afford medications in an attempt to lose weight D. Behavioral counseling was done to establish a relationship between food and an mood. Patient was provided information about local counseling and psychiatry and Dr Kirkland at [email or web address]. We would like to cover regular topics and build on low glycemic eating exercise mindful eating, using yoga and meditation along with deep breathing and connecting with friends and family. E. MASS PAT reviewed, Patient's current medications were reviewed and opinion was given on medication that can cause weight gain and can be substituted F. Patient was assessed for risk with obesity including and not limiting to atherosclerosis heart disease stroke kidney disease, restrictive lung disease, irritable bowel syndrome and overall mortality. Risk of developing prediabetes diabetes and metabolic syndrome was discussed G. Therapeutic plan: We have decided to make therapeutic plan which would include choosing wisely on calories restricting portion getting active, tracking weight, getting good quality sleep and working on time management H. Patient will follow up in 4 weeks for weight management Total time spent today was 60 minutes of which greater than 50% was spent on coordinating and counseling After consultation and careful review of medical history, this patient would benefit from Zepbound based off of the following criteria met: Patient is over the age of 18, has a BMI of 48.46. Additional comorbidities include hypertension, hyperlipidemia, anxiety, and obstructive sleep apnea. Patient has trialed other methods of weight loss including improving diet, exercise without success over three months. This medication is prescribed by or in consultation with a board certified obesity and weight management physician (Dr. Melia Middleton or Dr. Shweta Middleton). All questions have been answered to patient's satisfaction. Patient verbalized understanding of diagnosis and treatments explained. Advised to call sooner prior to next visit it any questions/concerns arise. Case discussed with collaborating physician Lissy Middleton who reviewed the assessment and plan. Chart, medications, labs, vital signs reviewed. Dictation was accomplished with the use of Singularu voice recognition software, which is prone to medical misidentifications and grammatical errors. This are unintentional and the practitioner does try to identify and correct these, but some could still be present. Please do not hesitate to contact practitioner for clarification. 11/16/2024 Nutritional counseling (ICD-10 - Z71.3) Annemarie is a 44-year-old female with history of obesity who presents to the office today for weight management consult. Medical history, labs, allergies, medications, and social history reviewed with the patient. Provided education on healthy diet and lifestyle which includes high-protein, low carbohydrate, high-fiber, and a variety of fruits and vegetables. Patient encouraged to exercise with emphasis on resistance training minimum 3 times per week to maintain muscle mass and cardio to burn fat. All patient questions answered. Patient will follow-up in 2 to 4 weeks for weight management. 11/16/2024: Weight 265 pounds, BMI 48.46. Seca scan completed and discussed with the patient. On body analysis approximately 60% of the patient's weight is fat mass. Visceral adiposity is high. Has lower amounts of muscle mass. Patient has trialed several diets over the past several years for weight loss. Has also been more active participating in both regular walking and biking and has not had significant change in her weight. Based on her several comorbidities she would be a good candidate for Zepbound. We discussed proper use of the medication and its potential side effects including but not limited to nausea, constipation, abdominal pain, and heartburn. Patient has no history of pancreatitis and no personal or family history of medullary thyroid cancer or multiple endocrine neoplasia syndrome. She will follow-up in office in 4 to 6 weeks. # Hypertension: Blood pressure stable in office. Continue chlorthalidone 25 mg half tablet daily. # Anxiety: Continue escitalopram 20 mg once daily. # QUINTON: Sleep study last year through [facility] sleep medicine services. Continue nightly use of CPAP. Will begin Zepbound weekly. # Hyperlipidemia: Patient reports elevation in LDL on recent labs. Continue diet control. Patient was reassured and welcomed to the practice. We discussed that we stress a hollistic medical approach with emphasis on lifestyle modification. Patient was informed that a healthy lifestyle with exercise and good eating habits can help reduce their risk of medical complications. Patient is explained that obesity increases their risk of diabetes, cardiovascular disease, or organ damage. We spent a lot of time discussing the relationship between food, exercise, sleep, mental health and obesity. Patient was counseled on the importance EATING local, organic food when possible. Patient was educated on clean 15 and dirty dozen. I provided information about reading books called The Food Rules by Eliazar Denny and Eat Fat Get Lean by Dr Dandre Mays. Self education is important in the journey for weight management. Patient was offered diagnostic testing/ SECA scale. We want to measure visceral adiposity, advanced body composition, adverse lipids, fatty acid balance, risk for heart disease and atherosclerosis, markers of inflammation and genetic susceptibility. Patient was counseled on weight management and was advised to lose weight using A. Meal Replacement Products Patient was educated on the replacement products called optifast. This is a good way of taking fixed amount of calories. It has been shown in studies to be ineffective weight management tool. This however has to be coupled with lifestyle intervention as well as laboratory data and EKG monitoring. It is impossible to know how a person will tolerate complete meal replacement. The side effects of meal replacement and weight loss could include syncopal attacks, dizziness, gallstones, potential cholecystectomy, possible heart attack and even . The benefits of meal replacement would be potential weight loss but no guarantees can be made. Meal replacement products are not covered by insurance. Once the patient has bought these products we cannot return them B. Lifestyle management which includes several strategies as below 1. Eat a low carbohydrate good fat good protein diet. Eliminate refined carbohydrates from the diet. Limit sugared beverages. Eat local organic when possible. Cook your own meals. Read food labels. Focus on healthy snacks. Portion control and food with low glycemic index 2. Exercise regularly. Try to get at least 6000 steps a day. Use a predominant to track activity level. Consider using apps like 7 minute excercise, myCodeshippal, lose it, stick as needed for self-monitoring and weight management. Consider group exercises. Consider hiring a personal coach. Regular exercise is moise to sustainable health and prevents as a buffer against weight regain 3. Sleep is most important for healing. Try to sleep at least 6-8 hours a night. A good quality sleep needs a sleep ritual with ideal room temperature of around 68. It might help to take a shower and have no electronics in the room and sleep in a very dark room without artificial light. Start sleep routine and get up early in the morning and go to bed on time. 4. Make a social connection. Surround yourself with positive people with positive energy. Connect with friends and family. 5. Get into the habit of meditating and mindfulness while doing everything. 6. Go outside and connect with nature. C. Prescription medications Patient was educated on the use of prescription medications for medical weight loss. This is a growing list and includes phentermine, Topamax,Qsymia, contrave, belviq and saxenda, wegovy etc. All prescription medications could have side effects including but not limited to kidney stones, seizure disorder cardiac arrhythmias heart attack pancreatitis, GI effects, Etc. Patient was encouraged to read the prescription insert and have coaching with their pharmacist and make an informed decision about taking medication and know that these medications are being prescribed with good intentions and we do not know how a patient would react to the medication. Some medications are FDA approved for weight loss and there is also off label use depending on patient's inability to afford medications in an attempt to lose weight D. Behavioral counseling was done to establish a relationship between food and an mood. Patient was provided information about local counseling and psychiatry and Dr Kirkland at [email or web address]. We would like to cover regular topics and build on low glycemic eating exercise mindful eating, using yoga and meditation along with deep breathing and connecting with friends and family. E. MASS PAT reviewed, Patient's current medications were reviewed and opinion was given on medication that can cause weight gain and can be substituted F. Patient was assessed for risk with obesity including and not limiting to atherosclerosis heart disease stroke kidney disease, restrictive lung disease, irritable bowel syndrome and overall mortality. Risk of developing prediabetes diabetes and metabolic syndrome was discussed G. Therapeutic plan: We have decided to make therapeutic plan which would include choosing wisely on calories restricting portion getting active, tracking weight, getting good quality sleep and working on time management H. Patient will follow up in 4 weeks for weight management Total time spent today was 60 minutes of which greater than 50% was spent on coordinating and counseling After consultation and careful review of medical history, this patient would benefit from Zepbound based off of the following criteria met: Patient is over the age of 18, has a BMI of 48.46. Additional comorbidities include hypertension, hyperlipidemia, anxiety, and obstructive sleep apnea. Patient has trialed other methods of weight loss including improving diet, exercise without success over three months. This medication is prescribed by or in consultation with a board certified obesity and weight management physician (Dr. Melia Middleton or Dr. Shweta Middleton). All questions have been answered to patient's satisfaction. Patient verbalized understanding of diagnosis and treatments explained. Advised to call sooner prior to next visit it any questions/concerns arise. Case discussed with collaborating physician Lissy Middleton who reviewed the assessment and plan. Chart, medications, labs, vital signs reviewed. Dictation was accomplished with the use of Singularu voice recognition software, which is prone to medical misidentifications and grammatical errors. This are unintentional and the practitioner does try to identify and correct these, but some could still be present. Please do not hesitate to contact practitioner for clarification. Plan Of Treatment Next Appt Details Provider Name:KASSIE CERDA , 12/21/2024 03:00:00 PM, [address], [address], [place], [address], Insurance Providers Payer Name Payer Address Payer Phone Subscriber Number Group Number Insured Name Patient Relationship to Insured Coverage Start Date Coverage End Date [facility] [address] [place] [address] [id number] ANNEMARIE PEREZ Self - patient is the insured 4 Medical (General) History Medical History History ICD Code anxiety hypertension weight gain asthma headaches Surgical History Surgery Date(Month/Year) C sectionx2
== END 2024-11-22 12:07 | disposition home or self-care (01) ==
LOC: HO.HMCFM 11:43
PROVIDERS: PCP Physician Assistant Medical; Visit Provider Internal Medicine
DX: I10 Essential (primary) hypertension (principal); J45.990 Exercise induced bronchospasm; G47.33 Obstructive sleep apnea (adult) (pediatric)

== ENCOUNTER 2025-01-25 09:58 | Outpatient (REF) | payer OTHER, SELFPAY ==
[2025-01-25 13:50] LABS: Hematocrit 38.7 % (37.0-47.0); Hemoglobin 12.8 g/dl (12.0-16.0); Mean Corpuscular HGB Conc 33.1 g/dl (31.0-35.0); Mean Corpuscular Hemoglobin 27.4 pg (27.0-33.0); Mean Corpuscular Volume 82.9 fL (80.0-98.0); NRBC Abs Auto 0.000 X10*3/uL (0.0-0.012); NRBC Pct Auto 0.0 /100WBC (0.0-0.2); Platelet Count 234 X10*3/uL (160-400); Red Blood Count 4.67 X10*6/uL (4.20-5.50); White Blood Count 6.3 X10*3/uL (4.8-10.8)
[2025-01-25 14:25] LABS: Magnesium 2.0 mg/dL (1.6-2.6)
[2025-01-25 14:33] LABS: Folate 11.5 ng/mL (> or = 4.0); Vitamin B12 241 pg/mL (200-900)
== END 2025-01-25 09:59 | disposition home or self-care (01) ==
LOC: HO.HKASLDS 09:58
PROVIDERS: PCP Physician Assistant Medical; Visit Provider Physician Assistant Medical
DX: G47.33 Obstructive sleep apnea (adult) (pediatric) (principal); F41.9 Anxiety disorder, unspecified; J45.20 Mild intermittent asthma, uncomplicated; R53.83 Other fatigue; G47.9 Sleep disorder, unspecified; R51.9 Headache, unspecified; Z79.899 Other long term (current) drug therapy; Z79.51 Long term (current) use of inhaled steroids; Z13.6 Encounter for screening for cardiovascular disorders; Z79.85 Long-term (current) use of injectable non-insulin antidiabetic drugs
CPT/HCPCS: 36415; 82306; 82607; 82746; 83090; 83735; 83921; 85027

== ENCOUNTER 2025-01-25 09:58 | Outpatient (AMB) | payer OTHER, SELFPAY ==
[2025-01-25 10:04] VITALS: BP 136/90; PULSE 79; O2SAT 99; BMI 45.8
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
--- OUTSIDE RECORDS SUMMARY | 2025-01-25 10:29 | XMS_ITS | Continuity of Care Document ---
Author Organization [employer] Address [address] [facility] [address] [place] [address] Insurance Providers Payer Plan Claims Address Claims Phone Policy Number Group Number Relation Employer Guarantor Name Guarantor Guarantor Address Guarantor Phone JAILYN Cohen [employer] [address] [facility] [address], [place] [address] [id number] Spouse Unknown Unknown [address] [place] [address] Problems Condition ICD9 code ICD10 code SNOMED code Start Date End Date S tatus Encounter for screening for other metabolic disorders Z13.228 Results No Results Allergies, adverse reactions, alerts No known allergies and adverse reactions Medications No administered medications reported Vital Signs No vital signs reported Social History No smoking Hx information available
--- OUTSIDE RECORDS SUMMARY | 2025-01-25 10:29 | XMS_ITS | Continuity of Care Document ---
Author Organization [employer] Address [address] [facility] [address] [place] [address] Insurance Providers Payer Plan Claims Address Claims Phone Policy Number Group Number Relation Employer Guarantor Name Guarantor Guarantor Address Guarantor Phone JAILYN Cohen [employer] [address] [place] [address] [id number] Spouse Unknown Unknown [address] [place] [address] Problems Condition ICD9 code ICD10 code SNOMED code Start Date End Date S tatus Encounter for screening for other metabolic disorders Z13.228 Results No Results Allergies, adverse reactions, alerts No known allergies and adverse reactions Medications No administered medications reported Vital Signs No vital signs reported Social History No smoking Hx information available
--- OUTSIDE RECORDS SUMMARY | 2025-01-25 10:29 | XMS_ITS | Patient Health Record ---
Author Organization [facility] [address] [address] Address [address] [place] [address] Care Team Providers Care Gamer Name Role Phone KASSIE CERDA Unavailable [phone] Allergies No Known Allergies Reason For Referral No Information Medications Medication SIG (Take, Route, Frequency, Duration) Notes Start Date End Date Status Escitalopram Oxalate 20 MG TAKE 1 TABLET DAILY Oral; Duration: 90 Days Active Chlorthalidone 25 MG Half-dose Orally da tha; Duration: 30 days Active Zepbound 5 MG/0.5ML Inject 5 mg Subcutan eous weekly; Duration: 28 days 11/16/2024 Active Problems Problem Type SNOMED Code ICD Code Onset Dates Problem Status W/U Status Risk Notes Problem Mixed hyperlipidemia (989483264) Mixed hyperlipidemia (E78.2) Active confirmed Problem Essential hypertension (62816963) Essential (primary) hypertension (I10) Active confirmed Problem Anxiety (54238412) Anxiety (F41.9) Active confirmed Problem Obstructive sleep apnea syndrome (13253309) QUINTON (obstructive sleep apnea) (G47.33) Active confirmed Problem Adult-onset obesity (415702923) Adult-onset obesity (E66.9) Active confirmed Problem Body mass index 40+ - severely obese (651540859) BMI 45.0-49.9, adult (Z68.42) Active confirmed Vital Signs Heart Rate 83 /min 12/21/2024 Blood pressure diastolic 86 mm Hg 12/21/2024 Oximetry 99 % 12/21/2024 Height 62 in 12/21/2024 Blood pressure systolic 132 mm Hg 12/21/2024 Weight 265 lbs 12/21/2024 BMI 48.46 kg/m2 12/21/2024 Encounters Encounter Location Date Provider Diagnosis [facility] [address] [address] 11/16/2024 KASSIE CERDA Adult-onset obesity E66.9 ; BMI 45.0-49.9, adult Z68.42 ; Essential (primary) hypertension I10 ; QUINTON (obstructive sleep apnea) G47.33 ; Mixed hyperlipidemia E78.2 ; Anxiety F41.9 and Nutritional counseling Z71.3 [facility] [address] [address] 12/21/2024 KASSIE CERDA Adult-onset obesity E66.9 ; BMI 45.0-49.9, adult Z68.42 ; Essential (primary) hypertension I10 ; QUINTON (obstructive sleep apnea) G47.33 ; Mixed hyperlipidemia E78.2 and Anxiety F41.9 [facility] [address] [address] 11/16/2024 KASSIE CERDA Assessments Encounter Date Diagnosis [...] # QUINTON: Sleep study last year through [facility]. Continue nightly use of [...] Consider using apps like 7 minute excercise, Soliopal, lose it, stick as needed for self-monitoring and weight management. Consider group exercises. Consider hiring a personal care aid. Regular exercise is moise to sustainable health [...] counseling and psychiatry and Dr Kirkland at [facility]. We would like to cover regular topics [...] Dictation was accomplished with the use of Udorse voice recognition software, which is prone to [...] # QUINTON: Sleep study last year through [facility]. Continue nightly use of [...] Consider using apps like 7 minute excercise, myTeburupal, lose it, stick as needed for self-monitoring and weight management. Consider group exercises. Consider hiring a personal care aid. Regular exercise is moise to sustainable health [...] counseling and psychiatry and Dr Kirkland at [facility]. We would like to cover regular topics [...] Dictation was accomplished with the use of Udorse voice recognition software, which is prone to medical misidentifications and grammatical errors. This are unintentional and the practitioner does try to identify and correct these, but some could still be present. Please do not hesitate to contact practitioner for clarification. 12/21/2024 Adult-onset obesity (ICD-10 - E66.9) Patient is here for weight management follow-up. We focused on significance of healthy lifestyle changes. We talked about need to track steps with goal between 6000-10,000 steps daily, focus on portion control, read food labels, get adequate sleep between 7 to 8 hours, get adequate rest to the body, meditate, frequent nutritious meals including vegetables and healthy choices of lean meats, fish, and elimination of refined carbohydrates. We also talked about mindfulness and mindful eating. Particular focus was on continuing portion control, mindful eating, and regular physical activity. Total time of 30 minutes spent with patient with greater than 50% spent on counseling and coordinating care. 11/16/2024: Weight 265 pounds, BMI 48.46. Seca [...] in office in 4 to 6 weeks. 12/21/2024: Weight 265 pounds, BMI 48.46. Seca scan completed and discussed with the patient. Patient's weight is largely stable from her last visit. However on body analysis she is down 4 pounds of fat mass. Fat mass index today is 28.1. She has had a 2 pound increase of muscle mass. Visceral adiposity has reduced from 2.4-2.3. She is now currently on Zepbound 5 mg weekly. Has had 1 dose thus far. Reports no significant adverse effects. Discussed goals of diet and exercise. Plan is to maintain current dose and follow-up in 4 to 6 weeks. # Hypertension: Blood pressure stable in office. Continue chlorthalidone 25 mg half tablet daily. # Anxiety: Continue escitalopram 20 mg once daily. # QUINTON: Sleep study last year through [facility]. Continue nightly use of CPAP. Will begin Zepbound weekly. # Hyperlipidemia: Patient reports elevation in LDL on recent labs. Continue diet control. All questions have been answered to patient's satisfaction. Patient verbalized understanding of diagnosis and treatments explained. Advised to call sooner prior to next visit it any questions/concerns arise. Case discussed with collaborating physician Lissy Middleton who reviewed the assessment and plan. Chart, medications, labs, vital signs reviewed. Dictation was accomplished with the use of Udorse voice recognition software, which is prone to medical misidentifications and grammatical errors. This are unintentional and the practitioner does try to identify and correct these, but some could still be present. Please do not hesitate to contact practitioner for clarification. 12/21/2024 BMI 45.0-49.9, adult (ICD-10 - Z68.42) Patient is here for weight management follow-up. We focused on significance of healthy lifestyle changes. We talked about need to track steps with goal between 6000-10,000 steps daily, focus on portion control, read food labels, get adequate sleep between 7 to 8 hours, get adequate rest to the body, meditate, frequent nutritious meals including vegetables and healthy choices of lean meats, fish, and elimination of refined carbohydrates. We also talked about mindfulness and mindful eating. Particular focus was on continuing portion control, mindful eating, and regular physical activity. Total time of 30 minutes spent with patient with greater than 50% spent on counseling and coordinating care. 11/16/2024: Weight 265 pounds, BMI 48.46. Seca [...] in office in 4 to 6 weeks. 12/21/2024: Weight 265 pounds, BMI 48.46. Seca scan completed and discussed with the patient. Patient's weight is largely stable from her last visit. However on body analysis she is down 4 pounds of fat mass. Fat mass index today is 28.1. She has had a 2 pound increase of muscle mass. Visceral adiposity has reduced from 2.4-2.3. She is now currently on Zepbound 5 mg weekly. Has had 1 dose thus far. Reports no significant adverse effects. Discussed goals of diet and exercise. Plan is to maintain current dose and follow-up in 4 to 6 weeks. # Hypertension: Blood pressure stable in office. Continue chlorthalidone 25 mg half tablet daily. # Anxiety: Continue escitalopram 20 mg once daily. # QUINTON: Sleep study last year through [facility]. Continue nightly use of CPAP. Will begin Zepbound weekly. # Hyperlipidemia: Patient reports elevation in LDL on recent labs. Continue diet control. All questions have been answered to patient's satisfaction. Patient verbalized understanding of diagnosis and treatments explained. Advised to call sooner prior to next visit it any questions/concerns arise. Case discussed with collaborating physician Lissy Middleton who reviewed the assessment and plan. Chart, medications, labs, vital signs reviewed. Dictation was accomplished with the use of Udorse voice recognition software, which is prone to medical misidentifications and grammatical errors. This are unintentional and the practitioner does try to identify and correct these, but some could still be present. Please do not hesitate to contact practitioner for clarification. 12/21/2024 Essential (primary) hypertension (ICD-10 - I10) Patient is here for weight management follow-up. We focused on significance of healthy lifestyle changes. We talked about need to track steps with goal between 6000-10,000 steps daily, focus on portion control, read food labels, get adequate sleep between 7 to 8 hours, get adequate rest to the body, meditate, frequent nutritious meals including vegetables and healthy choices of lean meats, fish, and elimination of refined carbohydrates. We also talked about mindfulness and mindful eating. Particular focus was on continuing portion control, mindful eating, and regular physical activity. Total time of 30 minutes spent with patient with greater than 50% spent on counseling and coordinating care. 11/16/2024: Weight 265 pounds, BMI 48.46. Seca [...] in office in 4 to 6 weeks. 12/21/2024: Weight 265 pounds, BMI 48.46. Seca scan completed and discussed with the patient. Patient's weight is largely stable from her last visit. However on body analysis she is down 4 pounds of fat mass. Fat mass index today is 28.1. She has had a 2 pound increase of muscle mass. Visceral adiposity has reduced from 2.4-2.3. She is now currently on Zepbound 5 mg weekly. Has had 1 dose thus far. Reports no significant adverse effects. Discussed goals of diet and exercise. Plan is to maintain current dose and follow-up in 4 to 6 weeks. # Hypertension: Blood pressure stable in office. Continue chlorthalidone 25 mg half tablet daily. # Anxiety: Continue escitalopram 20 mg once daily. # QUINTON: Sleep study last year through [facility]. Continue nightly use of CPAP. Will begin Zepbound weekly. # Hyperlipidemia: Patient reports elevation in LDL on recent labs. Continue diet control. All questions have been answered to patient's satisfaction. Patient verbalized understanding of diagnosis and treatments explained. Advised to call sooner prior to next visit it any questions/concerns arise. Case discussed with collaborating physician Lissy Middleton who reviewed the assessment and plan. Chart, medications, labs, vital signs reviewed. Dictation was accomplished with the use of Udorse voice recognition software, which is prone to [...] # QUINTON: Sleep study last year through [facility]. Continue nightly use of [...] Consider group exercises. Consider hiring a personal care aid. Regular exercise is moise to sustainable health [...] counseling and psychiatry and Dr Kirkland at [facility]. We would like to cover regular topics [...] Dictation was accomplished with the use of Udorse voice recognition software, which is prone to [...] # QUINTON: Sleep study last year through [facility]. Continue nightly use of [...] Consider using apps like 7 minute excercise, [email or web address], lose it, stick as needed for self-monitoring and weight management. Consider group exercises. Consider hiring a personal care aid. Regular exercise is moise to sustainable health [...] counseling and psychiatry and Dr Kirkland at [facility]. We would like to cover regular topics [...] Dictation was accomplished with the use of Udorse voice recognition software, which is prone to medical misidentifications and grammatical errors. This are unintentional and the practitioner does try to identify and correct these, but some could still be present. Please do not hesitate to contact practitioner for clarification. 12/21/2024 QUINTON (obstructive sleep apnea) (ICD-10 - G47.33) Patient is here for weight management follow-up. We focused on significance of healthy lifestyle changes. We talked about need to track steps with goal between 6000-10,000 steps daily, focus on portion control, read food labels, get adequate sleep between 7 to 8 hours, get adequate rest to the body, meditate, frequent nutritious meals including vegetables and healthy choices of lean meats, fish, and elimination of refined carbohydrates. We also talked about mindfulness and mindful eating. Particular focus was on continuing portion control, mindful eating, and regular physical activity. Total time of 30 minutes spent with patient with greater than 50% spent on counseling and coordinating care. 11/16/2024: Weight 265 pounds, BMI 48.46. Seca [...] in office in 4 to 6 weeks. 12/21/2024: Weight 265 pounds, BMI 48.46. Seca scan completed and discussed with the patient. Patient's weight is largely stable from her last visit. However on body analysis she is down 4 pounds of fat mass. Fat mass index today is 28.1. She has had a 2 pound increase of muscle mass. Visceral adiposity has reduced from 2.4-2.3. She is now currently on Zepbound 5 mg weekly. Has had 1 dose thus far. Reports no significant adverse effects. Discussed goals of diet and exercise. Plan is to maintain current dose and follow-up in 4 to 6 weeks. # Hypertension: Blood pressure stable in office. Continue chlorthalidone 25 mg half tablet daily. # Anxiety: Continue escitalopram 20 mg once daily. # QUINTON: Sleep study last year through [facility]. Continue nightly use of CPAP. Will begin Zepbound weekly. # Hyperlipidemia: Patient reports elevation in LDL on recent labs. Continue diet control. All questions have been answered to patient's satisfaction. Patient verbalized understanding of diagnosis and treatments explained. Advised to call sooner prior to next visit it any questions/concerns arise. Case discussed with collaborating physician Lissy Middleton who reviewed the assessment and plan. Chart, medications, labs, vital signs reviewed. Dictation was accomplished with the use of Udorse voice recognition software, which is prone to medical misidentifications and grammatical errors. This are unintentional and the practitioner does try to identify and correct these, but some could still be present. Please do not hesitate to contact practitioner for clarification. 12/21/2024 Mixed hyperlipidemia (ICD-10 - E78.2) Patient is here for weight management follow-up. We focused on significance of healthy lifestyle changes. We talked about need to track steps with goal between 6000-10,000 steps daily, focus on portion control, read food labels, get adequate sleep between 7 to 8 hours, get adequate rest to the body, meditate, frequent nutritious meals including vegetables and healthy choices of lean meats, fish, and elimination of refined carbohydrates. We also talked about mindfulness and mindful eating. Particular focus was on continuing portion control, mindful eating, and regular physical activity. Total time of 30 minutes spent with patient with greater than 50% spent on counseling and coordinating care. 11/16/2024: Weight 265 pounds, BMI 48.46. Seca [...] in office in 4 to 6 weeks. 12/21/2024: Weight 265 pounds, BMI 48.46. Seca scan completed and discussed with the patient. Patient's weight is largely stable from her last visit. However on body analysis she is down 4 pounds of fat mass. Fat mass index today is 28.1. She has had a 2 pound increase of muscle mass. Visceral adiposity has reduced from 2.4-2.3. She is now currently on Zepbound 5 mg weekly. Has had 1 dose thus far. Reports no significant adverse effects. Discussed goals of diet and exercise. Plan is to maintain current dose and follow-up in 4 to 6 weeks. # Hypertension: Blood pressure stable in office. Continue chlorthalidone 25 mg half tablet daily. # Anxiety: Continue escitalopram 20 mg once daily. # QUINTON: Sleep study last year through [facility]. Continue nightly use of CPAP. Will begin Zepbound weekly. # Hyperlipidemia: Patient reports elevation in LDL on recent labs. Continue diet control. All questions have been answered to patient's satisfaction. Patient verbalized understanding of diagnosis and treatments explained. Advised to call sooner prior to next visit it any questions/concerns arise. Case discussed with collaborating physician Lissy Middleton who reviewed the assessment and plan. Chart, medications, labs, vital signs reviewed. Dictation was accomplished with the use of Udorse voice recognition software, which is prone to [...] # QUINTON: Sleep study last year through [facility]. Continue nightly use of [...] Consider using apps like 7 minute excercise, [email or web address], lose it, stick as needed for self-monitoring and weight management. Consider group exercises. Consider hiring a personal care aid. Regular exercise is moise to sustainable health [...] counseling and psychiatry and Dr Kirkland at [facility]. We would like to cover regular topics [...] Dictation was accomplished with the use of Udorse voice recognition software, which is prone to [...] # QUINTON: Sleep study last year through [facility]. Continue nightly use of [...] Consider using apps like 7 minute excercise, Soliopal, lose it, stick as needed for self-monitoring and weight management. Consider group exercises. Consider hiring a personal care aid. Regular exercise is moise to sustainable health [...] counseling and psychiatry and Dr Kirkland at [facility]. We would like to cover regular topics [...] Dictation was accomplished with the use of Udorse voice recognition software, which is prone to medical misidentifications and grammatical errors. This are unintentional and the practitioner does try to identify and correct these, but some could still be present. Please do not hesitate to contact practitioner for clarification. 12/21/2024 Anxiety (ICD-10 - F41.9) Patient is here for weight management follow-up. We focused on significance of healthy lifestyle changes. We talked about need to track steps with goal between 6000-10,000 steps daily, focus on portion control, read food labels, get adequate sleep between 7 to 8 hours, get adequate rest to the body, meditate, frequent nutritious meals including vegetables and healthy choices of lean meats, fish, and elimination of refined carbohydrates. We also talked about mindfulness and mindful eating. Particular focus was on continuing portion control, mindful eating, and regular physical activity. Total time of 30 minutes spent with patient with greater than 50% spent on counseling and coordinating care. 11/16/2024: Weight 265 pounds, BMI 48.46. Seca [...] in office in 4 to 6 weeks. 12/21/2024: Weight 265 pounds, BMI 48.46. Seca scan completed and discussed with the patient. Patient's weight is largely stable from her last visit. However on body analysis she is down 4 pounds of fat mass. Fat mass index today is 28.1. She has had a 2 pound increase of muscle mass. Visceral adiposity has reduced from 2.4-2.3. She is now currently on Zepbound 5 mg weekly. Has had 1 dose thus far. Reports no significant adverse effects. Discussed goals of diet and exercise. Plan is to maintain current dose and follow-up in 4 to 6 weeks. # Hypertension: Blood pressure stable in office. Continue chlorthalidone 25 mg half tablet daily. # Anxiety: Continue escitalopram 20 mg once daily. # QUINTON: Sleep study last year through [facility]. Continue nightly use of CPAP. Will begin Zepbound weekly. # Hyperlipidemia: Patient reports elevation in LDL on recent labs. Continue diet control. All questions have been answered to patient's satisfaction. Patient verbalized understanding of diagnosis and treatments explained. Advised to call sooner prior to next visit it any questions/concerns arise. Case discussed with collaborating physician Lissy Middleton who reviewed the assessment and plan. Chart, medications, labs, vital signs reviewed. Dictation was accomplished with the use of Udorse voice recognition software, which is prone to [...] # QUINTON: Sleep study last year through [facility]. Continue nightly use of [...] reading books called The Food Rules by Eliaazr Denny and Eat Fat Get Lean by [...] Consider using apps like 7 minute excercise, Soliopal, lose it, stick as needed for self-monitoring and weight management. Consider group exercises. Consider hiring a personal care aid. Regular exercise is moise to sustainable health [...] counseling and psychiatry and Dr Kirkland at [facility]. We would like to cover regular topics [...] Dictation was accomplished with the use of Udorse voice recognition software, which is prone to medical misidentifications and grammatical errors. This are unintentional and the practitioner does try to identify and correct these, but some could still be present. Please do not hesitate to contact practitioner for clarification. Plan Of Treatment Next Appt Details Provider Name:KASSIE CERDA , 01/31/2025 02:30:00 PM, [address] [facility], [address], [place], [address], Insurance Providers Payer Name Payer Address Payer Phone Subscriber Number Group Number Insured Name Patient Relationship to Insured Coverage Start Date Coverage End Date [facility] [address] [place] [address] [phone] [id number] ANNEMARIE PEREZ Self - patient is the insured 4 Medical (General) History Medical History History ICD Code anxiety hypertension weight gain asthma headaches Surgical History Surgery Date(Month/Year) C sectionx2
--- OUTSIDE RECORDS SUMMARY | 2025-01-25 10:29 | XMS_ITS | Clinical Summary ---
Author Organization [facility] Address [address] [place] [id number] Phone Care Team Providers Care Lodge Officer Name Role Phone Lisa Brown Primary Care Provide r Social History Tobacco Use Types Packs/Day Years Used Date Smoking Tobacco: Never Assessed Education Answer Date Recorded Are you interested in more education? Not on kenneth e 04/20/2024 Are you concerned about learning? Not on file 04/20/2024 No 04/20/2024 No 04/20/2024 Digital Access Answer Date Recorded No 04/20/2024 No 04/20/2024 Reliable internet access at home? Not on file 04/20/2024 Device with a working camera? Not on file Comments Unknown Sex and Gender Information Value Date Recorded Sex Assigned at Not on file Legal Sex Female 3:02 PM EDT Gender Identity Not on file Sexual Orientation Not on file Plan of Treatment Health Maintenance Due Date Last Done Comments Adult Td,Tdap Booster 1979 LIPID PANEL 1979 DEPRESSION SCREENING 1991 SMOKING Hx and SMOKELESS TOB ACCO SCREENING 1992 HEPATITIS C SCREENING 1997 HIV ONE-TIME SCREENING (18-6 5 YEARS) 1997 PAP SMEAR 2000 MAMMOGRAM 2019 COVID-19 VACCINE (2023-2 5 season) 2024 COLOGUARD 2024 COLONOSCOPY 2024 COLORECTAL CANCER SCREENING 2024 FIT TEST 2024 FOBT 2024 SIGMOIDOSCOPY 2024 VIRTUAL COLONOSCOPY 2024 HEPATITIS A VACCINES Aged Out No long er eligible based on patient's age to complete this topic HIB VACCINES Aged Out No longer eligi ble based on patient's age to complete this topic MENINGOCOCCAL VACCINES (ACWY) Aged Out No longer eligible based on patient's age to complete this topic MENINGOCOCCAL VACCINES (B) Aged Out N o longer eligible based on patient's age to complete this topic PNEUMOCOCCAL VACCINES (0-49 years) Aged Out No longer eligible based on patient's age to complete this topic Medical Devices Not on file Insurance [facility] O [facility] H[facility] Address: [address] [address] Care Teams Lodge Officer Relationship Specialty Start Date End Date Lisa Brown PA PCP - General Physician Project Landscape Architect 04/06/24 Additional Source Comments The information contained in this document represents components of the legal health record. It is not the complete legal health record.[facility]
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
== END 2025-01-25 10:47 | disposition home or self-care (01) ==
LOC: HO.HSMS 09:59
PROVIDERS: PCP Physician Assistant Medical; Visit Provider Physician Assistant Medical
DX: G47.33 Obstructive sleep apnea (adult) (pediatric) (principal); F41.9 Anxiety disorder, unspecified; R53.83 Other fatigue; G47.9 Sleep disorder, unspecified; J45.20 Mild intermittent asthma, uncomplicated
CPT/HCPCS: 99214